=== PATIENT | male | born 1980 | race Caucasian/White ===

== ENCOUNTER → 2024-02-19 14:01 | Outpatient (REF) | payer BC, SELFPAY | LOC: UCDH 14:01 | PROVIDERS: ATTENDING PHYSICIAN Emergency Medicine; FAMILY PHYSICIAN Family Medicine; REFERRING PHYSICIAN Internal Medicine Critical Care Medicine | DX: J18.9 Pneumonia, unspecified organism (principal) | CPT/HCPCS: 71046 ==

== ENCOUNTER → 2024-04-19 13:45 | Outpatient (REF) | payer BC, SELFPAY | LOC: RAD 13:45 | PROVIDERS: ATTENDING PHYSICIAN Nurse Practitioner Adult Health | DX: Z87.01 Personal history of pneumonia (recurrent) (principal) | CPT/HCPCS: 71046 ==

== ENCOUNTER 2024-05-08 19:07 | Inpatient (IN) | payer BC, SELFPAY ==
[2024-05-08 14:25] VITALS: BP 157/91
--- NOTE | 2024-05-08 15:27 | ED.GENMED ---
History of Present Illness
General
Chief Complaint: Breathing Problem
Source: patient and family
Exam Limitations: none
Time Seen by Provider: 05/08/24 14:54
Nursing documentation reviewed up to this point in time: agreed with
History of Present Illness
History of Present Illness:
PT IS A 43 Y/O M
h/o laryngomalacia s/p partial epiglottal resection
remote tonsillectomy
h/o aSpiration pna and acute resp failure requiring intubtion x 2
here from for fever and shaking chills this morning 3 am
pt had + flu and covid testing there and was sent here for pulse ox89%
he doesn't usuall wear o2
pt has a very abnormal voice at baseline which is muffled/gurgly but his mom feels like it is worse
he is able to swallow and denies significant pain in his throat/neck
he does feel a little SOB
deneis leg swelling
h/o possible PE last gaye but then repeated imaging showed no PE so he was only anticoagulated for short time
Past History
Past History
ED Past Medical History: Psychiatric (depression), Other (PE, pneumonia, intubation, pleural effusion, largyngomalacia) and Other (Laryngomalacia, PE, factor V Leiden deficiency, aspiration pneumonia, rectal fistula repair, T tonsillectomy surgery,)
ED Past Surgical History: Tonsilectomy
Social History
Tobacco: Non-smoker
Personal: Single
Living: with family
Employment: Employed
Family History
Family History: Diabetes and Hypertension
Review of Systems
Review of Systems
Allergies reviewed?: Yes
All Other Systems: Not applicable
Phy Exam
Physical Exam
Physical Exam:
GENERAL: Alert , in no apparent distress
EYE: pupils equal and reactive
NECK: Supple
ENT: b/l TM s clear, pharynx severely erythematous; uvula midline and small; no tonsils;
muffled voice and gurgling
able to swallow
CARDIAC: tachy, no edema
LUNGS: Clear breath sounds bilaterally, no acute respiratory distress, no wheezes/rales/rhonchi, occ cough
ABDOMEN: Soft, without focal tenderness, no r/g, no cvat, normal bowel sounds
NEUROLOGICAL: Alert and oriented, no focal neuro deficits
SKIN: Warm and dry, skin intact.
MUSCULOSKELETAL: No edema, well perfused.
PSYCH: Normal and appropriate interaction.
Sepsis
Sepsis Screening
Sepsis Assessment: Sepsis (unlikely, covid +)
Sepsis Screen
Sepsis Screen: Sepsis
Date: 05/08/24
Time: 17:38
Course
Orders/Labs/Results
Orders:
Orders
05/08/24 15:06
CR Chest - 2 Views Urgent
Comment:
Reason For Exam: fever, cough, h/o pna
05/08/24 15:07
Acetaminophen [Tylenol] 1,000 mg PO NOW STA
Dexamethasone Sod Phosphate [Decadron] 10 mg IV NOW STA
05/08/24 15:31
COVID-19 Antigen Urgent
Source: Nasal Swab
Complete Blood Count/With Diff Urgent
Comprehensive Metabolic Panel Urgent
Lactic Acid Q4H
Comment: CANCEL 2nd LACTIC ACID IF 1st LACTIC ACID IS LESS THAN 2
Blood Culture Urgent
LI Source: Blood/Venous
Specimen Description:
Influenza A+B Rapid Molecular Urgent
LI Source: Nasal Swab
Specimen Description:
05/08/24 16:59
Ipratropium/Albuterol Sulfate [Duoneb] 3 ml INH R NOW ONE
Abnormal Lab Results
05/08/24
15:31
WBC 4.5 L 10^3/uL
(4.8-10.8)
MCHC 32.1 L g/dL
(33.0-37.0)
Absolute Lymphs (auto) 0.5 L 10^3/uL
(1.2-3.4)
Absolute Monos (auto) 0.7 H 10^3/uL
(0.1-0.6)
Lymphocytes % 11.1 L %
(20.5-51.1)
Monocytes % 14.7 H %
(1.7-9.3)
Chloride 96 L mmol/L
(98-107)
Glucose 110 H mg/dl
(70-99)
Lactic Acid 0.6 L mmol/L
(0.7-2.0)
SARS-CoV-2 Antigen Positive A
(Negative)
05/08/24 15:31
05/08/24 15:31
Vital Signs
Initial and Last Documented VS:
Initial Vital Signs
Temp Pulse Resp BP Pulse Ox
38.3 C H 112 22 157/91 95
05/08/24 14:25 05/08/24 14:25 05/08/24 14:25 05/08/24 14:25 05/08/24 14:25
Last Documented Vital Signs
Temp Pulse Resp BP Pulse Ox
38.3 C H 102 27 157/91 88
05/08/24 14:25 05/08/24 16:30 05/08/24 16:30 05/08/24 14:25 05/08/24 16:56
MDM/Problems Addressed
Differential Diagnosis Includes:
pneumonia, covid, flu, hypoxia
MDM/Problems Addressed:
cathy craig 43 y/o M
laryngomalacia, s/p partial epigottis resection in the past, tonsillectomy; h/o intubations x 2 for pna
here with fever, rigors 3 am and mild sob; went to and sent for pulse ox 89% RA
pt is febrile, normotensive, was satting 93% on RA most of visit
diminished lungs but no wheezing;
pt is toelrating secretions but has a muffled/wet sounding voice at baseline, mom feels it is worse
covid POS here flu NEG
steroids given
wbc 4.6, lactate 0.6,
sat went down to 88% sleeping; up when awake pulse ox 92%
cxr indep reviewed
no obvious pna
*Critical Care Note
Total Time (30-74mins, 75-104mins- exclusive of procedures): Not Applicable
ED Attending Note
-
Portions of this chart may have been created with voice recognition software.� Occasional wrong word or��sound alike� substitutions may have occurred due to the inherent limitations of voice recognition software.
Discharge Plan
Departure
Patient Disposition: Admit
Date of Disposition: 05/08/24
Time of Disposition: 17:03
Admit to: IMU
Presentation/result/management discussed w/ accepting MD/DO: Hospitalist
Condition: Fair
Covid-19: Confirmed COVID-19
Discharge Problem:
COVID-19, Hypoxia, Laryngomalacia
Prescriptions:
No Action
ibuprofen [Advil] 200 mg Tablet
400 mg PO Q8HPRN PRN (Reason: cold symptoms)
NyQuil D 6.98-52-19-500 mg/15 mL Liquid
30 ml PO HSPRN PRN (Reason: cold symptoms)
Referrals:
Anthony Randall DO [Family Provider] -
Interventions
Interventions:
*Risk Screen - Suicide Last Done: 05/08/24 14:25
*General Assessment Last Done: 05/08/24 14:25
*Neglect/Abuse Screening Last Done: 05/08/24 14:25
ED- Fall Risk Assessment Last Done: 05/08/24 15:50
*ED COVID-19 Vaccine History Last Done: 05/08/24 14:25
ED- Cardiac Assessment Last Done: 05/08/24 15:50
ED- Pulmonary Assessment Last Done: 05/08/24 15:50
Discharge Date and Time
Print Language: SINHALA
[2024-05-08] MEDS: DECADRON 10 MG IV (15:34)
[2024-05-08] MEDS: TYLENOL 1000 MG PO (15:34)
[2024-05-08 15:57] LABS: % Basophils 0.4 % (0-2); % Eosinophils 0.2 % (0-6); % Immature Granulocytes 0.2 % (0-0.5); % Lymphocytes 11.1 % (20.5-51.1); % Monocytes 14.7 % (1.7-9.3); % Neutrophils 73.4 % (42.2-75.2); Absolute Lymphocytes 0.5 10^3/uL (1.2-3.4); Absolute Monocytes 0.7 10^3/uL (0.1-0.6); Absolute Neutrophils 3.3 10^3/uL (1.4-6.5); Hematocrit 45.5 % (39.0-52.0); Hemoglobin 14.6 g/dL (13.0-18.0); Mean Corp Hgb Conc. 32.1 g/dL (33.0-37.0); Mean Corpuscular Hgb 27.4 pg (27.0-31.0); Mean Corpuscular Volume 85.5 fL (80.0-94.0); Mean Platelet Volume 9.8 fL (7.4-10.4); Nucleated Red Blood Cells % 0 % (-); Platelet Count 171 10^3/uL (130-400); Red Blood Cell Count 5.32 10^6/uL (4.70-6.10); Red Cell Dist. Width 14.4 % (11.5-14.5); White Blood Cell Count 4.5 10^3/uL (4.8-10.8)
[2024-05-08 16:08] LABS: Lactic Acid 0.6 mmol/L (0.7-2.0)
[2024-05-08 16:20] LABS: COVID-19 Antigen Positive (Negative)
[2024-05-08 16:21] LABS: ALT (SGPT) 33 U/L (0-50); AST (SGOT) 34 U/L (17-59); Albumin 4.4 g/dl (3.5-5.0); Alkaline Phosphatase 76 U/L (38-126); Blood Urea Nitrogen 18 mg/dl (9-20); Calcium 8.8 mg/dl (8.4-10.2); Carbon Dioxide 30 mmol/L (22-30); Chloride 96 mmol/L (98-107); Glucose 110 mg/dl (70-99); Sodium 136 mmol/L (135-145); Total Bilirubin 0.5 mg/dl (0.2-1.3); Total Protein 7.8 g/dl (6.3-8.2); eGFR > 60.00
[2024-05-08 16:26] LABS: Potassium 4.3 mmol/L (3.5-5.1)
[2024-05-08 17:08] VITALS: BMI 41.6
[2024-05-08 17:20] VITALS: BP 133/76
--- NOTE | 2024-05-08 17:36 | HPS.HSE ---
Family Physician
-
Family Physician: Anthony Randall
Chief Complaint
-
Shortness of breath, fever
History of Present Illness
43 y/o male with past medical history of laryngomalacia status post partial epiglottis resection in the past, tonsillectomy, history of intubations x 2 for pneumonia, aspiration pneumonia (requiring intubation), recurrent pneumonia, questionable
history of PE (was in ER notes, but needs to be verified), questionable history of factor V Leiden deficiency (was in ER notes, but needs to be verified), neutropenia (resolved; had it as a child), adrenal gland abnormality on CT imaging and sleep
apnea, presented with fever, cough, chills, body aches, sore throat and headache since yesterday. His mom was present at the time of patient encounter and contributed to the history. They note that patient had has more shortness of breath over the
past 24 hours, patient got up at 3 am this morning and went to urgent care, where he was told he was positive for COVID and Flu (however Flu testing here was negative). Patient denied chest pain, abdominal pain, nausea or vomiting.
Medical History
Past Medical History
Past Medical History: Reports Other (As per HPI above)
Past Surgical History: Reports Tonsilectomy and Other (Partial epigottis resection )
Social History
Tobacco: Non-smoker
Alcohol: None
Drug: None
Family History
Family History: Not pertinent
Allergies / Home Medications
Allergies reflects when Allergies were last updated in [facility].
Home Medications with original date entered in [facility]
Allergy/Medication List:
Allergies
Allergy/AdvReac Type Severity Reaction Status Date / Time
cat dander Allergy Unknown Verified 05/08/24 14:27
mold Allergy Unknown Verified 05/08/24 14:27
Home Medications
htbahddvv-NGS-KN-acetaminophen 6.25 mg-30 au-37jd-273jm/15mL oral liqd 30 ml PO HSPRN PRN cold symptoms 05/08/24
ibuprofen 200 mg tablet (Advil) 400 mg PO Q8HPRN PRN cold symptoms 05/08/24
Review of Systems
-
A 12 point ROS was completed and negative except as noted: Yes
Physical Exam
Vital Signs
Vital Signs
Temp Pulse Resp BP Pulse Ox
100.9 F H 102 27 157/91 88
05/08/24 14:25 05/08/24 16:30 05/08/24 16:30 05/08/24 14:25 05/08/24 16:56
Physical Exam
General: No Apparent Distress and Conversant
HEENT: NormoCephalic and Moist mucous membranes
Respiratory: Decreased Breath Sounds (on the right lower side)
Cardiac: S1/S2 and Tachycardia
GI: Soft, Non Tender and Normal Bowel Sounds
Musculoskeletal: No Cyanosis and No Edema
Skin: Warm and Dry
Neuro: Awake, Alert and AO x 3
Psych: Calm and Intact Judgment/Insight
Laboratory Results
-
05/08/24 15:31
05/08/24 15:31
Laboratory Results
Lactic Acid Cancelled 05/08/24 19:15
Total Bilirubin 0.5 mg/dl (0.2-1.3) 05/08/24 15:31
AST 34 U/L (17-59) 05/08/24 15:31
ALT 33 U/L (0-50) 05/08/24 15:31
Alkaline Phosphatase 76 U/L (38-126) 05/08/24 15:31
Impression/Plan
-
Assessment/Plan
Possible Acute Hypoxic Respiratory Insufficiency
RLL Pneumonia
COVID Positive
History of laryngomalacia status post partial epiglottis resection in the past, tonsillectomy
History of intubations x 2 for pneumonia
Aspiration pneumonia (requiring intubation)
Recurrent Pneumonia and Recent Use of Antibiotics
-Patient says his oxygen saturations might be lower than his baseline (normally 92% to 93% on room air)
-Given history above, broad spectrum antibiotics consisting of MRSA and Pseudomonas coverage with Vancomycin, Cefepime and Flagyl
-Given patient's history of pneumonia needing intubation, and patient's anatomy, patient is at elevated risk of decompensation
-Monitor closely in IMU
-Pulmonary toilet consisting of HOB elevation as ordered, Saline for inhalation, Mucinex
-Continue Dexamethasone IV steroids 6 mg daily (received 10 mg in the ER)
-Given possible hypoxia along with tachycardia, check CT Chest PE study and lower extremity ultrasound for DVT
Questionable history of PE (was in ER notes, but needs to be verified)
Questionable history of factor V Leiden deficiency (was in ER notes, but needs to be verified)
SOB, Possible Hypoxia, and Tachycardia
Fullness in the lower extremities reported by patient this admission
-Given possible hypoxia along with tachycardia, check CT Chest PE study
-Check lower extremity ultrasound for DVT
Neutropenia (resolved; had it as a child)
History of adrenal gland abnormality on CT imaging
Sleep apnea
DVT Prophylaxis: Lovenox. If lower extremity ultrasound is negative, then can order SCDs.
Code Status: Full Code
[2024-05-08] MEDS: DUONEB 3 ML INH (17:44)
[2024-05-08 18:00] VITALS: BP 143/84
[2024-05-08] MEDS: MAXIPIME 1000 MG IV (19:27)
[2024-05-08] MEDS: MUCINEX 600 MG PO (19:27)
[2024-05-08] MEDS: STERILE WATER FOR INJECTION 10 ML IV (19:28)
[2024-05-08] MEDS: LOVENOX 40 MG SC (19:28)
--- NOTE | 2024-05-08 19:29 | PHA.VAN.IN ---
Assessment
- Assessment
Renal Function: Appears similar to baseline
Maximum Temperature: 100.9 F
Concomitant Antimicrobials: CEFEPIME
- Previous Dosing Experience
Date of Regimen: 06/2014
AUC Dosing Plan
- Dosing Variables
Dosing Weight (kg): 88 (ADJUSTED BODY WEIGHT)
Dosing CrCl (ml/min): 125
Vd coefficient (L/kg): 0.7
- Empiric Dosing
Initial / Loading Dose: VANCO 2000MG X1
Maintenance Regimen: VANCO 1000MG Q8H
Estimated AUC (mcg*h/mL): 475
Estimated Peak (mcg*h/mL): 28
Estimated Trough (mcg/ml): 13.2
Estimated Half Life (H): 6.4
- Monitoring
No levels ordered at this time: CONSIDER LEVEL PRIOR TO 4TH MAINTENANCE DOSE
MRSA Screen: Ordered per protocol
Pharmacokinetics Vancomycin I
- -
Patient Age: 43
Patient Sex: Male
Vancomycin Day #: 1
Indication: PULM
Requesting Provider: DR. KEY
Height / Weight:
Height 5 ft 7 in
Actual Weight 120.4 kg
IBW in k
Adjusted BW in k
Pertinent Past Medical History: LARYNGOMALACIA, CHRONIC ASPIRATION, OBESITY
- Vital Signs / Lab Results
Temp Pulse Resp BP Pulse Ox
99.1 F 98 30 143/84 91
05/08/24 17:48 05/08/24 18:00 05/08/24 18:00 05/08/24 18:00 05/08/24 18:00
Lab Results - Hematology
05/08/24
15:31
WBC 4.5 L
Lab Results - Chemistry
05/08/24
15:31
BUN 18
Creatinine 0.8
Albumin 4.4
05/08/24 05/08/24
15:31 19:15
Lactic Acid 0.6 L Cancelled
Microbiology Results
05/08/24 15:31 Influenza Types A & B ([facility]) - Final
Nasal Swab Negative for Influenza A & B, NAAT
Negative results must be combined with clinical observations
and patient history.
Nucleic Acid Amplification test (NAAT)performed on the
[employer] platform.
[2024-05-08 19:43] VITALS: BP 116/69
[2024-05-08] MEDS: VANCOCIN 540 MG IV (19:44)
[2024-05-08 20:00] VITALS: BP 106/65
[2024-05-08 22:06] VITALS: BP 137/89
--- NOTE | 2024-05-08 22:18 | PTCARENOTE ---
Received pt to ICU 3357 (IMU status) via stretcher. Stood and pivoted independently to bed. Bathed with CHG. Pt. AAOx3, without complaints, reports feeling better. Muffled/garbled speech quality (pt. reports it is mildly worse than his baseline). On
2L NC, spo2 93%. Lungs diminished. No cough per pt. Sputum collection cup provided in case he can expectorate. NSR on tele, HR 80-90s. BP 137/89. Afebrile. Skin c/d/i. Urinal at bedside. R AC #18 and L W #20 patent and capped. Call guardado in reach, pt
instructed to call before getting OOB.
--- NOTE | 2024-05-08 23:23 | PTCARENOTE ---
Pt. intermittently desatting to low 80s while asleep. Shallower respirations witnessed during desaturation. When awoken, sats up to 90s immediately. Increased to 4L NC. HOB raised. Report given to oncoming RN.
[2024-05-08] MEDS: FLUSH (NSS) 2 FLUSH IV (23:41)
[2024-05-08] MEDS: FLAGYL 500 MG 100 IV (23:41)
[2024-05-09] VITALS (12 sets, daily range): BP systolic 110–128; BP diastolic 69–87; PULSE 72–78; BMI 39.6
--- NOTE | 2024-05-09 01:43 | PTCARENOTE ---
Patient O2 sat on 4lpm continues to drop intermittently to mid 80's while sleeping. He is snoring and mouth breathing. Patient states he does use CPAP at HS. Ordered obtained. Resp in to place on patient.
[2024-05-09] MEDS: MAXIPIME 1000 MG IV ×4 (02:20→20:09)
[2024-05-09] MEDS: FLUSH (NSS) 2 FLUSH IV (02:25)
[2024-05-09] MEDS: STERILE WATER FOR INJECTION 10 ML IV ×4 (02:25→20:10)
[2024-05-09] MEDS: VANCOCIN 200 IV (05:41)
--- NOTE | 2024-05-09 06:41 | W.PN.HOSP.TC ---
Today's Communication/Plan
-
cont covid isolation protocols
stable for downgrade to tele
wean O2 as tolerated
abx narrowed to Cefipime
Video swallow exam in AM.
Assessment / Plan
Assessment / Plan
Physical Exam
General: No Apparent Distress, conversant, obese
HEENT: NormoCephalic and Moist mucous membranes, gurgling
Respiratory: Decreased Breath Sounds some rhonchi
Cardiac: S1/S2 NSR no rubs gallops murmurs
GI: Soft, Non Tender and Normal Bowel Sounds
Musculoskeletal: No Cyanosis and No Edema
Skin: Warm and Dry
Neuro: AO x 3
Psych: Calm
43M with past medical history of laryngomalacia status post partial epiglottis resection in the past, tonsillectomy, history of intubations x 2 for pneumonia, questionable history of PE factor V Leiden deficiency, neutropenia (resolved during
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 Evaluated in urgent care, where he was told he was positive for COVID and Flu (however Flu
testing here was negative). Patient denied chest pain, abdominal pain, nausea or vomiting.
Acute Hypoxic Respiratory Insufficiency
RLL Pneumonia
COVID Positive
History of laryngomalacia status post partial epiglottis resection in the past, tonsillectomy
History of intubations x 2 for pneumonia
Aspiration pneumonia (requiring intubation)
Recurrent Pneumonia and Recent Use of Antibiotics
-IMU admit
-requiring 2L
-MRSA screen neg, empiric Vanc cefipime flagyll narrowed to cefipime only
-Pulmonary toilet, HOB elevation, Saline for inhalation, Mucinex
-Continue Dexamethasone IV steroids 6 mg daily (received 10 mg in the ER)
-CT Chest limited study noted no PE
-lower extremity ultrasound neg for DVT
-Pulm eval appreciated Respiratory decompensation likely related to bacterial oleroueyk-poqutuclp-lmzpwzov or aspiration and less likely COVID as he is previously vaccinated and has had previous infection 4 times offering significant immunity
-speech eval appreciated oropharyngeal dysphagia, likely chronic in nature, cont NPO for now, Video swallow eval in AM
childhood Neutropenia resolved
History of adrenal gland abnormality on CT imaging
Sleep apnea
DVT Prophylaxis: Lovenox
Code Status: Full Code
Stable for downgrade to Tele
I spent a total of 50 minutes with the patient or on the floor. More than 50% of this time involved counseling and coordination of care.
Anticipated Discharge: > 48 hours
Subjective/Interval History
-
Date of Service: May 09, 2024
Seen and examined at bedside in no acute distress resting comfortably in bed. Reports improvement in symptoms since admission. On nasal cannula supplementation, non labored respiration.
Objective Data
-
Labs:
Laboratory Results
05/09/24 05/09/24
05:40 06:21
WBC Cancelled Pending
Hgb Cancelled Pending
Hct Cancelled Pending
Plt Count Cancelled Pending
Sodium Cancelled Pending
Potassium Cancelled Pending
Chloride Cancelled Pending
Carbon Dioxide Cancelled Pending
BUN Cancelled Pending
Creatinine Cancelled Pending
Glucose Cancelled Pending
Calcium Cancelled Pending
Total Bilirubin Cancelled Pending
AST Cancelled Pending
ALT Cancelled Pending
Alkaline Phosphatase Cancelled Pending
Vital Signs:
Vital Signs
Temp Pulse Resp BP Pulse Ox
97.5 F 74 22 119/77 94
05/08/24 22:07 05/09/24 06:00 05/09/24 06:00 05/09/24 06:00 05/09/24 06:00
I&O
05/07/24 05/08/24 05/09/24
06:59 06:59 06:59
Intake Total 100 / 100
Output Total 450 / 450
Balance -350 / -350
--- NOTE | 2024-05-09 07:38 | CON.INTV ---
Consultation
Consultation Request
Date/Time Consultation Requested: 05/09/2024-7 AM
Date/Time Consultation Performed: 05/09/2024-7 AM
Requesting Provider: Hospitalist
Performing Provider: Dr. Gibson
Reason for Consultation: COVID and pneumonia
Medical History
-
Chief Complaint: Shortness of breath
History of Present Illness:
43-year-old obese non-smoking male with a history of laryngomalacia, recurrent pneumonias including hospitalization and ventilator dependence and questionable pulmonary embolism, factor V Leiden deficiency, and obstructive sleep apnea presented with
feels sharp, cough, chills, body aches, sore throat and headache previously vaccinated, no recent COVID booster and states he has had COVID 5 times in the past now with pneumonia and COVID positive-pulmonary consulted for pneumonia 05/09/2024.
Patient states that he feels improved. He has mild chest congestion. He has a nonproductive cough. He has mild shortness of breath. Does not complain of any current chest pain, chest tightness, wheezing, pleurisy, abdominal pain, nausea,
increased leg swelling or weakness.
Past Medical History
Past Medical History: None (Laryngomalacia. Partial epiglottis resection. Tonsillectomy. History intubation twice for pneumonia. Aspiration pneumonia requiring intubation. Recurrent pneumonia. Questionable history of PE. Possible factor V
Leiden deficiency. Neutropenia. ONEL. Obesity.)
Social History
Tobacco: Non-smoker
Alcohol: None
Drug: None
Personal: Single
Occupational Exposures: No known asbestos exposure
Environmental Exposures: No known tuberculosis exposure
Family History
Family History: Reviewed & Not Pertinent and Other
Allergies / Home Medications
Allergies
Allergy/AdvReac Type Severity Reaction Status Date / Time
cat dander Allergy Unknown Verified 05/08/24 14:27
mold Allergy Unknown Verified 05/08/24 14:27
Home Medications
�Medication �Instructions �Recorded �Confirmed �Last Taken �Type
crfaragmo-LYJ-HV-acetaminophen 30 ml PO HSPRN PRN cold symptoms 12/22/24 12/22/24 12/21/24 History
6.25 mg-30 ya-57xz-140fh/15mL oral
liqd
ibuprofen 200 mg tablet (Advil) 400 mg PO Q8HPRN PRN cold symptoms 05/08/24 05/08/24 05/07/24 History
Review of Systems
-
Unable to Obtain full review of systems at this time due to: Other (Per HPI)
Vitals / Labs / Diagnostic Testing
Vital Signs
Temp Pulse Resp BP Pulse Ox
97.5 F 74 22 119/77 94
05/08/24 22:07 05/09/24 06:00 05/09/24 06:00 05/09/24 06:00 05/09/24 06:00
Microbiology
05/08/24 15:31 Nasal Swab Influenza Types A & B ([facility]) - Final
Negative for Influenza A & B, NAAT
Negative results must be combined with clinical observations
and patient history.
Nucleic Acid Amplification test (NAAT)performed on the
[employer] platform.
Diagnostic Testing:
Physical Exam
-
Exam:
Well-nourished and well-developed in no apparent distress
HEENT-atraumatic, normocephalic
Neck-supple, no JVD, no bruit
Heart-regular rate and rhythm-no murmurs, rubs or gallops
Chest with diminished breath sounds, basilar crackles, no wheezes,, few rhonchi
Back without tenderness
Abdomen-soft, nontender, nondistended, no hepatosplenomegaly
Extremities-no cyanosis, clubbing, edema and good peripheral pulses
Integument-intact, no rashes, lesions or ecchymosis
Neurology-alert and oriented, nonfocal motor and sensory exam
Assessment
-
43-year-old obese non-smoking male with a history of laryngomalacia, recurrent pneumonias including hospitalization and ventilator dependence and questionable pulmonary embolism, factor V Leiden deficiency, and obstructive sleep apnea presented with
feels sharp, cough, chills, body aches, sore throat and headache previously vaccinated, no recent COVID booster and states he has had COVID 5 times in the past now with pneumonia and COVID positive-pulmonary consulted for pneumonia 05/09/2024.
Aitimvghu-phjpfhogz-lbmtkovo with aspiration risk
Recurrent pneumonias
Aspiration risk
COVID positive
Leukopenia
History laryngomalacia
Conditions present prior to admission:
Laryngomalacia.
Partial epiglottis resection.
Tonsillectomy.
History intubation twice for pneumonia.
Aspiration pneumonia requiring intubation.
Recurrent pneumonia.
Questionable history of PE.
Possible factor V Leiden deficiency.
Neutropenia.
ONEL.
Obesity.
Plan
Respiratory decompensation likely related to bacterial ifpkibiup-mwrecdgjx-phsrpkys or aspiration and less likely COVID as he is previously vaccinated and has had previous infection 4 times offering significant immunity
Supplemental oxygen as needed
Aspiration precautions
Speech therapy evaluation-last saw 02/25/2021-dysphagia 3 with thin liquids-had video swallow at that time
Video swallow if needed
Nebulizers as needed-currently not bronchospastic
Decadron per protocol
CPAP as needed
Isolation per protocol
Prone positioning if needed
Check cultures
Sputum culture if able to produce
Empiric antibiotics-vancomycin, Flagyl and cefepime initiated-discontinue vancomycin if MRSA screen negative
Check MRSA screen
Follow leukopenia
DVT prophylaxis-on Lovenox
Nutrition
Early mobilization
Patient stable for transfer to telemetry-pulmonary will continue to follow
Outpatient sleep disordered breathing/pulmonary xyjcng-al-qfct seen by Yomaira Herrera 04/26/2024 and has appointment with PFT 06/06/2024
Diagnostic data:
Chest x-ray 05/08/2024-right basilar pneumonia and small pleural effusion
CT chest 05/08/2024-some motion artifact but no pulmonary embolism was identified bilaterally, mild patchy parenchymal opacifications at the lung bases greater at the right lung base
Lower extremity ultrasound 05/08/2024-no evidence for right or left lower extremity DVT
Echocardiogram 07/07/2014-EF 55-60%, PA systolic 35-40
PSG 07/08/2021-sleep efficiency 94.3%, early REM onset 62 minutes, AHI-25.6, desaturation arsalan 77%, 5% of study time spent less than 90% saturation
Data Reviewed
-
EKG: Report reviewed by me
Radiology: Image personally visualized and interpreted and Report reviewed by me
CT Scan: Image personally visualized and interpreted and Report reviewed by me
Ultrasound: Report reviewed by me
Medical Tests (Nuc Med, Echo etc): Report reviewed by me
Labs: Labs reviewed by me
Old Records: Reviewed
Critical Care Time (in minutes): 55
[2024-05-09] MEDS: ProAIR HFA INHALER 2 PUFF INH ×4 (07:54→20:00)
[2024-05-09 08:18] LABS: % Immature Granulocytes 0.4 % (0-0.5); % Lymphocytes 15.5 % (20.5-51.1); % Neutrophils 75.1 % (42.2-75.2); Absolute Lymphocytes 0.7 10^3/uL (1.2-3.4); Absolute Monocytes 0.4 10^3/uL (0.1-0.6); Absolute Neutrophils 3.3 10^3/uL (1.4-6.5); Hematocrit 45.5 % (39.0-52.0); Hemoglobin 14.4 g/dL (13.0-18.0); Mean Corp Hgb Conc. 31.6 g/dL (33.0-37.0); Mean Corpuscular Hgb 27.3 pg (27.0-31.0); Mean Corpuscular Volume 86.3 fL (80.0-94.0); Nucleated Red Blood Cells % 0 % (-); Platelet Count 192 10^3/uL (130-400); Red Blood Cell Count 5.27 10^6/uL (4.70-6.10); Red Cell Dist. Width 14.6 % (11.5-14.5); White Blood Cell Count 4.5 10^3/uL (4.8-10.8)
[2024-05-09 08:36] LABS: ALT (SGPT) 30 U/L (0-50); AST (SGOT) 31 U/L (17-59); Albumin 4.3 g/dl (3.5-5.0); Alkaline Phosphatase 65 U/L (38-126); Blood Urea Nitrogen 17 mg/dl (9-20); Calcium 8.5 mg/dl (8.4-10.2); Carbon Dioxide 31 mmol/L (22-30); Chloride 99 mmol/L (98-107); Estimated Creatinine Clearance > 125 ml/min; Glucose 127 mg/dl (70-99); Magnesium 2.4 mg/dl (1.6-2.3); Potassium 4.2 mmol/L (3.5-5.1); Sodium 139 mmol/L (135-145); Total Bilirubin 0.3 mg/dl (0.2-1.3); Total Protein 7.5 g/dl (6.3-8.2); eGFR > 60.00
[2024-05-09] MEDS: FLAGYL 500 MG 100 IV (09:45)
[2024-05-09] MEDS: MUCINEX PO (09:46)
[2024-05-09] MEDS: DECADRON 6 MG IV (09:46)
--- NOTE | 2024-05-09 11:19 | PTOTSP ---
Speech Therapy Evaluation:
Pt exhibits clinical signs of oropharyngeal dysphagia, likely chronic in nature related to history of dysphagia, aspiration PNA, recurrent PNAs including hospitalization and ventilator dependence, and laryngomalacia s/p partial epiglottis resection.
Conservative PO trials of ice chips administered with slow but functional oral stage and no overt s/sx of aspiration, however unable to r/o aspiration d/t limitations at bedside, wet/gurgly vocal quality at baseline, and absent reflexive cough noted
on previous VSE in 2020. In brief, VSE in 2020 revealed trace laryngeal penetration and/or aspiration across all consistencies with no reflexive cough. See full report for further details. Pt currently with PNA (Opacity in R lung base noted on CT).
Pt at high risk of aspiration and associated decompression given hx of requirement of intubations x2 for PNA.
Recommend:
1. NPO
2. Medications non-oral
3. Oral care 3x daily
4. VFSS to further assess oropharyngeal swallow function and determine safest least restrictive diet
5. [facility] to follow
[2024-05-09] MEDS: D5/0.9% SODIUM CHLORIDE 1000 IV ×2 (12:40→23:02)
--- NOTE | 2024-05-09 15:00 | CM ---
CM following re: discharge planning.
Reviewed pt's chart, met with pt and met with pt's mother Nivia.
Pt is a 43 year old male, admitted with primary dx of Hypoxia, COVID19.
Per mother, pt lives with a girlfriend in a 2SH, has no children. Per mother, pt is independent in all areas [employer]IC[employer], drives, works. per mother, pt will go to her house and she will transport him home.
PCP: Anthony Pa
Pharmacy: [facility].
D/C plan: home with anticipated no needs. Mother to transport at discharge.
CM will follow with discharge plan updates as hospitalization progresses
--- NOTE | 2024-05-09 19:25 | PTCARENOTE ---
Patient remains on 2L NC; plan for [facility] swallow study tomorrow, npo and on IVF, oob to chair and bathroom, other vitals within normal limits
--- NOTE | 2024-05-09 20:00 | PTCARENOTE ---
Patient received sitting up in the chair, awake and alert. Saturating 96% on 2L/nc humidified oxygen. Denies pain. However, patient is dyspeic with speech, MIR. BUL clear anteriorly. Bilateral bases with faint crackles and right base diminished. BLE
with 1+ edema, pedal pulses palpable. S1S2 regular, distant with soft murmur. Po medication taken with a small sip of water, patient completely upright--no s/sx of aspiration noted. See assessment charted.
[2024-05-09] MEDS: MUCINEX 600 MG PO (20:10)
[2024-05-09] MEDS: LOVENOX 40 MG SC (20:10)
--- NOTE | 2024-05-09 22:35 | PTCARENOTE ---
Patient placed on CPAP with 2L oxygen bleed in per RT. Bilateral LEs SCDs placed per order.
[2024-05-10] VITALS (9 sets, daily range): BP systolic 104–148; BP diastolic 71–83; PULSE 69–82; O2SAT 93–96; BMI 41.0
[2024-05-10] MEDS: STERILE WATER FOR INJECTION 10 ML IV ×4 (01:50→19:29)
[2024-05-10] MEDS: MAXIPIME 1000 MG IV ×4 (01:51→19:28)
[2024-05-10 06:54] LABS: % Basophils 0.2 % (0-2); % Lymphocytes 20.2 % (20.5-51.1); % Monocytes 8.5 % (1.7-9.3); % Neutrophils 71.1 % (42.2-75.2); Absolute Lymphocytes 1.1 10^3/uL (1.2-3.4); Absolute Monocytes 0.4 10^3/uL (0.1-0.6); Absolute Neutrophils 3.7 10^3/uL (1.4-6.5); Hematocrit 43.5 % (39.0-52.0); Mean Corp Hgb Conc. 32.2 g/dL (33.0-37.0); Mean Corpuscular Hgb 27.7 pg (27.0-31.0); Mean Corpuscular Volume 86.1 fL (80.0-94.0); Mean Platelet Volume 10.1 fL (7.4-10.4); Nucleated Red Blood Cells % 0 % (-); Platelet Count 179 10^3/uL (130-400); Red Blood Cell Count 5.05 10^6/uL (4.70-6.10); Red Cell Dist. Width 14.4 % (11.5-14.5); White Blood Cell Count 5.2 10^3/uL (4.8-10.8)
[2024-05-10 07:22] LABS: ALT (SGPT) 30 U/L (0-50); AST (SGOT) 28 U/L (17-59); Albumin 3.7 g/dl (3.5-5.0); Alkaline Phosphatase 62 U/L (38-126); Blood Urea Nitrogen 16 mg/dl (9-20); Calcium 8.3 mg/dl (8.4-10.2); Carbon Dioxide 34 mmol/L (22-30); Chloride 102 mmol/L (98-107); Estimated Creatinine Clearance > 125 ml/min; Glucose 116 mg/dl (70-99); Potassium 4.4 mmol/L (3.5-5.1); Sodium 141 mmol/L (135-145); Total Bilirubin 0.3 mg/dl (0.2-1.3); Total Protein 6.8 g/dl (6.3-8.2); eGFR > 60.00
--- NOTE | 2024-05-10 07:28 | PTCARENOTE ---
Report given verbally to RN Disa, Questions answered.
--- NOTE | 2024-05-10 07:42 | W.PN.INTV ---
Today's Communication / Plan
Recommendations
Wean oxygen
Continue antibiotics
Decadron per protocol
Eventually follow-up radiograph
Aspiration precautions
Speech therapy evaluation
Transfer to telemetry-call pulmonary if respiratory issues arise
Assessment
-
43-year-old obese non-smoking male with a history of laryngomalacia, recurrent pneumonias including hospitalization and ventilator dependence and questionable pulmonary embolism, factor V Leiden deficiency, and obstructive sleep apnea presented with
feels sharp, cough, chills, body aches, sore throat and headache previously vaccinated, no recent COVID booster and states he has had COVID 5 times in the past now with pneumonia and COVID positive-pulmonary consulted for pneumonia 05/09/2024.
Besjpmfyh-jpotfutwk-yurhhlxv with aspiration risk
Recurrent pneumonias
Aspiration risk
COVID positive
Leukopenia
History laryngomalacia
Conditions present prior to admission:
Laryngomalacia.
Partial epiglottis resection.
Tonsillectomy.
History intubation twice for pneumonia.
Aspiration pneumonia requiring intubation.
Recurrent pneumonia.
Questionable history of PE.
Possible factor V Leiden deficiency.
Neutropenia.
ONEL.
Obesity.
Plan
Respiratory decompensation likely related to bacterial cyugbyfre-xgqxruqgu-htklnnzz or aspiration and less likely COVID as he is previously vaccinated and has had previous infection 4 times offering significant immunity
Supplemental oxygen as needed-weaned to room air
Aspiration precautions
Speech therapy evaluation-last saw 02/25/2021-dysphagia 3 with thin liquids-had video swallow at that time
Video swallow if needed
Nebulizers as needed-currently not bronchospastic
Decadron per protocol
On CPAP at home-tolerating CPAP 10 cm with 2 L oxygen
Isolation per protocol
Prone positioning if needed-has not needed
Cultures reviewed
Blood cultures negative
MRSA screen negative
Influenza negative
Sputum culture if able to produce
Empiric antibiotics-vancomycin, Flagyl and cefepime initiated-discontinue vancomycin if MRSA screen negative
Monitor leukopenia-improved
Hold off on antivirals including remdesivir
DVT prophylaxis-on Lovenox
Nutrition
Increase activity
Patient stable for transfer to telemetry--now on room air-call pulmonary if respiratory issues arise
Outpatient sleep disordered breathing/pulmonary dplicq-nn-zkgu seen by Yomaira Herrera 04/26/2024 and has appointment with PFT 06/06/2024
Diagnostic data:
Chest x-ray 05/08/2024-right basilar pneumonia and small pleural effusion
CT chest 05/08/2024-some motion artifact but no pulmonary embolism was identified bilaterally, mild patchy parenchymal opacifications at the lung bases greater at the right lung base
Lower extremity ultrasound 05/08/2024-no evidence for right or left lower extremity DVT
Echocardiogram 07/07/2014-EF 55-60%, PA systolic 35-40
PSG 07/08/2021-sleep efficiency 94.3%, early REM onset 62 minutes, AHI-25.6, desaturation arsalan 77%, 5% of study time spent less than 90% saturation
Subjective Dataa
Subjective Data
Date of Service:
Date of Service: May 10, 2024
Chief Complaint: Vice President Compliance Follow Up, Pulmonary Follow Up and Pneumonia Follow Up
Subjective:
No complaints of worsening shortness of breath, minimal cough, no chest pain or abdominal pain
Review of Systems
General: Other
Objective Data
Data Reviewed
Vital Signs / I&O / Oxygen:
Vital Signs
Temp Pulse Resp BP Pulse Ox
97.2 F 54 19 104/71 97
05/10/24 00:00 05/10/24 04:00 05/10/24 04:00 05/10/24 04:00 05/10/24 04:00
Intake and Output
05/09/24 05/10/24 05/11/24
06:59 06:59 06:59
Intake Total 100 / 100 1330 / 1330
Output Total 450 / 450 300 / 300
Balance -350 / -350 1030 / 1030
SaO2 97
Nasal Cannula flow liters per 2
minute
Physical Exam
General: Respiratory Distress (n) and Comfortable
HEENT: Normocephalic, Anicteric and Moist Mucous Membranes
Cardiovascular: Regular Rhythm
Respiratory: Wheeze (n), Crackles (Basilar), Rhonchi (Few expiratory), Non-Labored Respirations, Accessory Resp Muscle Use (n) and Stridor (n)
GI: Soft, Non Distended and Non Tender
Neurology: Awake, Alert and No Motor Deficits
Skin: Warm, Good Color, Cyanosis (n) and Jaundice (n)
Labs/Micro/Reports
Lab Data
05/10/24 06:06
05/10/24 06:06
Microbiology
05/08/24 20:47 Blood/Venous Blood Culture - Preliminary
No Growth in 24 hours- Final report to follow
05/08/24 20:46 Blood/Venous Blood Culture - Preliminary
No Growth in 24 hours- Final report to follow
05/08/24 15:31 Blood/Venous Blood Culture - Preliminary
No Growth in 24 hours- Final report to follow
05/08/24 20:46 Nose Nasal Screen MRSA (PCR) - Final
MRSA not detected - performed by PCR methodology.
05/08/24 15:31 Nasal Swab Influenza Types A & B ([facility]) - Final
Negative for Influenza A & B, NAAT
Negative results must be combined with clinical observations
and patient history.
Nucleic Acid Amplification test (NAAT)performed on the
[employer] platform.
--- NOTE | 2024-05-10 08:27 | W.PN.HOSP.TC ---
Today's Communication/Plan
-
Stable for downgrade to [facility]
Diet resumed, swallow compensation strategies as per speech
cont abx
IV steroid converted to PO
Assessment / Plan
Assessment / Plan
Physical Exam
General: No Apparent Distress, conversant, obese
HEENT: NormoCephalic and Moist mucous membranes
Respiratory: Decreased Breath Sounds some rhonchi, stable respiratory status on room air
Cardiac: S1/S2 NSR no rubs gallops murmurs
GI: Soft, Non Tender and Normal Bowel Sounds
Musculoskeletal: No Cyanosis and No Edema
Skin: Warm and Dry
Neuro: AO x 3
Psych: Calm
43M with past medical history of laryngomalacia status post partial epiglottis resection in the past, tonsillectomy, history of intubations x 2 for pneumonia, questionable history of PE factor V Leiden deficiency, neutropenia (resolved during
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 Evaluated in urgent care, where he was told he was positive for COVID and Flu (however Flu
testing here was negative). Patient denied chest pain, abdominal pain, nausea or vomiting.
Acute Hypoxic Respiratory Insufficiency
RLL Pneumonia
COVID Positive
History of laryngomalacia status post partial epiglottis resection in the past, tonsillectomy
History of intubations x 2 for pneumonia
Aspiration pneumonia (requiring intubation)
Recurrent Pneumonia and Recent Use of Antibiotics
-IMU admit stable for downgrade to [facility]
-requiring 2L since weaned off to room air, home oxygen assessment appreciated no need for supplemental oxygen
-MRSA screen neg, empiric Vanc cefipime flagyll narrowed to cefipime only cont
-Pulmonary toilet, HOB elevation, Saline for inhalation, Mucinex
-Continue Dexamethasone IV steroids 6 mg daily (received 10 mg in the ER)
-CT Chest limited study noted no PE
-lower extremity ultrasound neg for DVT
-Pulm eval appreciated Respiratory decompensation likely related to bacterial eoxejqayy-ukkbqfyip-lqvoghtm or aspiration and less likely COVID as he is previously vaccinated and has had previous infection 4 times offering significant immunity
-speech eval appreciated oropharyngeal dysphagia, likely chronic in nature, VSE appreciated trace aspiration suspected baseline swallow in comparison to VSE 02/25/2021 chronic elevated aspiration risk, patient aware of risk opted to resume oral diet
with swallowing compensation strategies.
Childhood Neutropenia resolved
History of adrenal gland abnormality on CT imaging
Sleep apnea
DVT Prophylaxis: Lovenox
Code Status: Full Code
Stable for downgrade to [facility]
I spent a total of 50 minutes with the patient or on the floor. More than 50% of this time involved counseling and coordination of care.
Anticipated Discharge: 24 - 48 hours
Subjective/Interval History
-
Date of Service: May 10, 2024
No acute distress sitting comfortably in chair. Weaned off oxygen supplementation, stable respiratory status on room air. Reports overall feeling well.
Objective Data
-
Labs:
Laboratory Results
05/10/24
06:06
WBC 5.2
Hgb 14.0
Hct 43.5
Plt Count 179
Sodium 141
Potassium 4.4
Chloride 102
Carbon Dioxide 34 H
BUN 16
Creatinine 0.7
Glucose 116 H
Calcium 8.3 L
Total Bilirubin 0.3
AST 28
ALT 30
Alkaline Phosphatase 62
Vital Signs:
Vital Signs
Temp Pulse Resp BP Pulse Ox
97.2 F 54 19 104/71 97
05/10/24 00:00 05/10/24 04:00 05/10/24 04:00 05/10/24 04:00 05/10/24 04:00
I&O
05/09/24 05/10/24 05/11/24
06:59 06:59 06:59
Intake Total 100 / 100 1330 / 1330
Output Total 450 / 450 300 / 300
Balance -350 / -350 1030 / 1030
[2024-05-10] MEDS: ProAIR HFA INHALER 2 PUFF INH (08:54)
[2024-05-10] MEDS: D5/0.9% SODIUM CHLORIDE 1000 IV (09:31)
[2024-05-10] MEDS: DECADRON 6 MG IV (09:32)
[2024-05-10] MEDS: MUCINEX 600 MG PO ×2 (09:32→19:29)
--- NOTE | 2024-05-10 09:52 | PN.CDI ---
CDI
- -
CDI:
Physician Documentation Request
Admit Date: 05/08/24 19:07
Dear Doctor Rachelle,
Patient admitted with COVID and pneumonia.
Presenting WBC 4.5 , temp 100.9 , heart rate 112 , resp rate 22-31
Please clarify which of the following most accurately describes the status of the patient's infection:
Sepsis
- Systemic manifestations of infection, with 2 or more SIRS criteria which include:
- Fever >100.4 degrees F or hypothermia < 96.8 degrees F
- Leukocytosis - WBC > 12,000 or leukopenia - WBC < 4,000 or > 10% bands
- Tachycardia > 90 beats per minute
- Tachypnea - RR > 20 breaths per minute or PaCO2 , 32mmHg
Source: Merck Manual 2013
Localized Infection Only, Without Systemic Illness
Other
Use of terms such as suspected, likely, concern for, or probable (associated with a specific diagnosis that is being evaluated, monitored, or treated as if it exists) are acceptable and can be coded in the inpatient setting, when documented at the
time of discharge.
Thank you,
Amira Ibarra RN, BSN
CDI Specialist
tiger text
Please use your independent medical judgment in providing your response.
--- NOTE | 2024-05-10 11:33 | PTCARENOTE ---
Pt returned back into room from video swallow.
--- NOTE | 2024-05-10 13:00 | PTCARENOTE ---
Per Dr. Bush - pt ok to resume regular diet, dc IVF, continue IV abx. Pt further downgraded from tele to med surg per protocol. Pt has remained pleasant, independent in room, VSS on room air. Pt updated with plan of care....verbalized understanding
and agreement. Safe environment maintained.
--- NOTE | 2024-05-10 14:06 | PTOTSP ---
Addendum entered and electronically signed by ST Alexandra 05/10/24 14:08:
*3. Single sips.
Original Note:
Video Swallow Study
Summary: Oral stage WFL. Pharyngeal stage moderately impaired and impacted by anatomical changes (see patient care note). Trace aspiration occurred with mildly thick liquids via tsp (in 1 out of 2 trials) and moderately thick liquids via tsp that
cleared with cough (cued x1 with mildly thick, spontaneous x1 with moderately thick).
Suspect swallow is at last known baseline when comparing video swallow study from 02/25/2021. Patient with chronic elevated aspiration risk. Patient opted to resume an oral diet with swallowing compensations understanding risks/complications of
aspiration.
Recommendations:
1. Patient opting to resume regular, thin diet understanding aspiration risks/complications
2. Medications: as best tolerated
3. Strategies: upright to 90 degrees, multiple swallows, cough/re-swallow strategy to clear airway, oral care 3x daily
4. Dysphagia therapy at the acute care level for continued education, instruction in compensations.
--- NOTE | 2024-05-10 14:15 | CM ---
CM following re: discharge planning.
Reviewed pt's chart. Pt on room air, continue supportive care.
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
D/C plan: home with anticipated no needs. Mother to transport at discharge.
CM will follow with discharge plan updates as hospitalization progresses
[2024-05-10] MEDS: LOVENOX 40 MG SC (19:28)
[2024-05-11] MEDS: STERILE WATER FOR INJECTION 10 ML IV ×2 (02:38→08:29)
[2024-05-11] MEDS: MAXIPIME 1000 MG IV ×2 (02:39→08:29)
[2024-05-11 06:46] LABS: % Basophils 0.2 % (0-2); % Immature Granulocytes 0.4 % (0-0.5); % Lymphocytes 21.4 % (20.5-51.1); % Monocytes 7.2 % (1.7-9.3); % Neutrophils 70.8 % (42.2-75.2); Absolute Lymphocytes 1.2 10^3/uL (1.2-3.4); Absolute Monocytes 0.4 10^3/uL (0.1-0.6); Hematocrit 44.8 % (39.0-52.0); Hemoglobin 14.4 g/dL (13.0-18.0); Mean Corp Hgb Conc. 32.1 g/dL (33.0-37.0); Mean Corpuscular Hgb 27.7 pg (27.0-31.0); Mean Corpuscular Volume 86.2 fL (80.0-94.0); Mean Platelet Volume 10.1 fL (7.4-10.4); Nucleated Red Blood Cells % 0 % (-); Platelet Count 183 10^3/uL (130-400); Red Cell Dist. Width 14.4 % (11.5-14.5); White Blood Cell Count 5.7 10^3/uL (4.8-10.8)
[2024-05-11 07:05] LABS: Blood Urea Nitrogen 18 mg/dl (9-20); Calcium 8.9 mg/dl (8.4-10.2); Carbon Dioxide 33 mmol/L (22-30); Chloride 101 mmol/L (98-107); Estimated Creatinine Clearance > 125 ml/min; Glucose 96 mg/dl (70-99); Magnesium 2.2 mg/dl (1.6-2.3); Phosphorus 3.9 mg/dl (2.5-4.5); Potassium 4.1 mmol/L (3.5-5.1); Sodium 140 mmol/L (135-145); eGFR > 60.00
--- NOTE | 2024-05-11 07:12 | W.PN.HOSP.TC ---
Today's Communication/Plan
-
IV abx de-escalated to PO Augmentin
monitor
likely discharge home tomorrow if remains stable
Assessment / Plan
Assessment / Plan
Physical Exam
General: No Apparent Distress, conversant, obese
HEENT: NormoCephalic and Moist mucous membranes
Respiratory: Decreased Breath Sounds some rhonchi, stable respiratory status on room air
Cardiac: S1/S2 NSR no rubs gallops murmurs
GI: Soft, Non Tender and Normal Bowel Sounds
Musculoskeletal: No Cyanosis and No Edema
Skin: Warm and Dry
Neuro: AO x 3
Psych: Calm
43M with past medical history of laryngomalacia status post partial epiglottis resection in the past, tonsillectomy, history of intubations x 2 for pneumonia, questionable history of PE factor V Leiden deficiency, neutropenia (resolved during
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 Evaluated in urgent care, where he was told he was positive for COVID and Flu (however Flu
testing here was negative). Patient denied chest pain, abdominal pain, nausea or vomiting.
Acute Hypoxic Respiratory Insufficiency
RLL Pneumonia
COVID Positive
Sepsis pna (tachycardia tachypnea fever on presentation)
History of laryngomalacia status post partial epiglottis resection in the past, tonsillectomy
History of intubations x 2 for pneumonia
Aspiration pneumonia (requiring intubation)
Recurrent Pneumonia and Recent Use of Antibiotics
-IMU admit stable for downgrade to [facility]
-requiring 2L since weaned off to room air, home oxygen assessment appreciated no need for supplemental oxygen
-MRSA screen neg, empiric Vanc cefipime flagyll narrowed to cefipime further de-escalated to Augmentin
-Pulmonary toilet, HOB elevation, Saline for inhalation, Mucinex
-Continue Dexamethasone IV steroids 6 mg daily (received 10 mg in the ER)
-CT Chest limited study noted no PE
-lower extremity ultrasound neg for DVT
-Pulm eval appreciated Respiratory decompensation likely related to bacterial ymizokhde-nqmngfpgi-smdepvuz or aspiration and less likely COVID as he is previously vaccinated and has had previous infection 4 times offering significant immunity
-speech eval appreciated oropharyngeal dysphagia, likely chronic in nature, VSE appreciated trace aspiration suspected baseline swallow in comparison to VSE 02/25/2021 chronic elevated aspiration risk, patient aware of risk opted to resume oral diet
with swallowing compensation strategies.
Childhood Neutropenia resolved
History of adrenal gland abnormality on CT imaging
Sleep apnea
DVT Prophylaxis: Lovenox
Code Status: Full Code
I spent a total of 40 minutes with the patient or on the floor. More than 50% of this time involved counseling and coordination of care.
Anticipated Discharge: Within 24 hours
Subjective/Interval History
-
Date of Service: May 11, 2024
No acute distress reports feeling well. Tolerating diet. Stable respiratory status on room air. Denies new acute issues at this time.
Objective Data
-
Labs:
Laboratory Results
05/11/24
06:17
WBC 5.7
Hgb 14.4
Hct 44.8
Plt Count 183
Sodium 140
Potassium 4.1
Chloride 101
Carbon Dioxide 33 H
BUN 18
Creatinine 0.6 L
Glucose 96
Calcium 8.9
Vital Signs:
Vital Signs
Temp Pulse Resp BP Pulse Ox
97.9 F 76 18 140/76 94
05/10/24 22:54 05/10/24 22:54 05/10/24 22:54 05/10/24 22:54 05/10/24 22:55
I&O
05/10/24 05/11/24 05/12/24
06:59 06:59 06:59
Intake Total 1330 / 1330 1000 / 1000
Output Total 300 / 300 275 / 275
Balance 1030 / 1030 725 / 725
[2024-05-11 07:32] VITALS: BP 129/80
[2024-05-11] MEDS: DECADRON 6 MG PO (08:29)
[2024-05-11] MEDS: MUCINEX 600 MG PO ×2 (08:29→20:10)
[2024-05-11] MEDS: AUGMENTIN 875 MG/125 MG 1 TABLET PO ×2 (11:11→20:10)
[2024-05-11 16:04] VITALS: BP 139/85
[2024-05-11] MEDS: LOVENOX 40 MG SC (20:09)
[2024-05-11 23:00] VITALS: BP 121/70
--- NOTE | 2024-05-12 06:45 | W.PN.HOSP.TC ---
Addendum entered and electronically signed by Therese Bush MD 05/12/24 19:33:
Morbid Obesity
Original Note:
Today's Communication/Plan
-
discharge
Assessment / Plan
Assessment / Plan
Physical Exam
General: No Apparent Distress, conversant, obese
HEENT: NormoCephalic and Moist mucous membranes
Respiratory: Decreased Breath Sounds, stable respiratory status on room air
Cardiac: S1/S2 NSR no rubs gallops murmurs
GI: Soft, Non Tender and Normal Bowel Sounds
Musculoskeletal: No Cyanosis and No Edema
Skin: Warm and Dry
Neuro: AO x 3
Psych: Calm
43M with past medical history of laryngomalacia status post partial epiglottis resection in the past, tonsillectomy, history of intubations x 2 for pneumonia, questionable history of PE factor V Leiden deficiency, neutropenia (resolved during
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 Evaluated in urgent care, where he was told he was positive for COVID and Flu (however Flu
testing here was negative). Patient denied chest pain, abdominal pain, nausea or vomiting.
Acute Hypoxic Respiratory Insufficiency
RLL Pneumonia
COVID Positive
Sepsis pna (tachycardia tachypnea fever on presentation)
History of laryngomalacia status post partial epiglottis resection in the past, tonsillectomy
History of intubations x 2 for pneumonia
Aspiration pneumonia (requiring intubation)
Recurrent Pneumonia and Recent Use of Antibiotics
-IMU admit downgraded to [facility]
-requiring 2L since weaned off to room air, home oxygen assessment appreciated no need for supplemental oxygen
-MRSA screen neg, empiric Vanc cefipime flagyll narrowed to cefipime further de-escalated to Augmentin, remains stable.
-Pulmonary toilet, HOB elevation, Saline for inhalation, Mucinex
-given overall clinical improvement, short course decadron steroids completed 5 days
-CT Chest limited study noted no PE
-lower extremity ultrasound neg for DVT
-Pulm lois appreciated Respiratory decompensation likely related to bacterial wsnaynghp-aafjvoeia-xeywojlr or aspiration and less likely COVID as he is previously vaccinated and has had previous infection 4 times offering significant immunity
-speech eval appreciated oropharyngeal dysphagia, likely chronic in nature, VSE appreciated trace aspiration suspected baseline swallow in comparison to VSE 02/25/2021 chronic elevated aspiration risk, patient aware of risk opted to resume oral diet
with swallowing compensation strategies.
Childhood Neutropenia resolved
History of adrenal gland abnormality on CT imaging
Sleep apnea
DVT Prophylaxis: Lovenox
Code Status: Full Code
Medically stable for discharge home with outpatient follow up recommendations.
Total Time Preparing Discharge ___40____ minutes including examination of the patient, summary of the hospital stay, instructions for continuing care to all relevant caregivers; and preparation of discharge records, prescriptions, and referral
forms if necessary.
Anticipated Discharge: Today
Subjective/Interval History
-
Date of Service: May 12, 2024
Seen and examined at bedside in no acute distress sitting up comfortably in chair. Overall reports feeling well. Denies new acute issues at this time. Eager to go home.
Objective Data
-
Vital Signs:
Vital Signs
Temp Pulse Resp BP Pulse Ox
98 F 71 24 121/70 94
05/11/24 23:00 05/11/24 23:00 05/11/24 23:00 05/11/24 23:00 05/11/24 23:00
I&O
05/10/24 05/11/24 05/12/24
06:59 06:59 06:59
Intake Total 1330 / 1330 1000 / 1000 720 / 720
Output Total 300 / 300 275 / 275
Balance 1030 / 1030 725 / 725 720 / 720
[2024-05-12 07:46] VITALS: BP 133/83
[2024-05-12] MEDS: DECADRON 6 MG PO (08:33)
[2024-05-12] MEDS: AUGMENTIN 875 MG/125 MG 1 TABLET PO (08:33)
[2024-05-12] MEDS: MUCINEX 600 MG PO (08:34)
--- NOTE | 2024-05-12 09:53 | PN.CDI ---
CDI
- -
CDI:
Physician Documentation Request
Admit Date: 05/08/24 19:07
Dear Doctor Rachelle,
Please review the following and provide your response in the progress notes.
Clinical Indicators:
Height: 5 ft 7 inches
Weight:265 (05/08 )
BMI:41.6
05/10 RD notes state 'BMI 41.0 obese range'
If possible, please provide an associated diagnosis related to the abnormal BMI, such as:
BMI > or = to 40
Overweight
Obesity:
Due to excess calories
Drug induced
Due to other cause
Severe or morbid obesity:
With alveolar hypoventilation (Obesity hypoventilation syndrome)
Without alveolar hypoventilation
- BMI is not significant
- Other
Use of terms such as suspected, likely, concern for, or probable (associated with a specific diagnosis that is being evaluated, monitored, or treated as if it exists) are acceptable and can be coded in the inpatient setting, when documented at the
time of discharge.
Thank you,
Amira Ibarra RN, BSN
CDI Specialist
tiger text
Please use your independent medical judgment in providing your response.
--- NOTE | 2024-05-12 13:03 | W.DCSUMMARY ---
Discharge Summary
Discharge Data
Date of Admission: 05/08/24
Date of Discharge: 05/12/24
-
Pending Results: Yes
Additional Pending Results:
cultures, official results
Discharge Plan
-
Patient Disposition: Home (Routine Discharge)
Discharge Diagnosis/Procedures: Community Acquired Pneumonia
COVID
Sepsis pneumonia
Condition: Fair
Diet: Regular
Activity: As tolerated
Driving Restrictions: As prior to admission
Bathing Restrictions: None
Activity Restrictions/Additional Instructions:
Please follow up with your primary care provider in 1 week of discharge and keep your appointment with Pulmonology.
Augmentin has been prescribed to complete treatment pneumonia. May 14, 2024 is your last day for antibiotic.
Mucinex has been prescribed to help with cough, ok to stop when symptoms resolve.
Please take medications as prescribed/recommended and follow up with primary care provider and/or other healthcare provider involved in your care for further adjustment to your medication regimen as necessary.
With regards to COVID it is recommended that you continue to Quarantine for 5 days 05/08/24-05/12/24. Then last 5 days 05/13/24-05/17/24 continue to wear mask when around other people.
Follow up with primary care provider before returning to work.
Referrals:
Anthony Randall DO [Family Provider] - in one week
Yomaira Herrera CRNP [Specified Professional Personl] - (As scheduled in June 06, 2024 with PFT)
Prescriptions:
New
amoxicillin-pot clavulanate 875-125 mg Tablet
1 tab PO Q12 Qty: 5 0RF
Rx Instructions:
May 14, 2024 is your last day for antibiotic.
guaifenesin 600 mg Tablet Extended Release 12hr
600 mg PO Q12 7 Days Qty: 14 0RF
Continued
ibuprofen [Advil] 200 mg Tablet
400 mg PO Q8HPRN PRN (Reason: cold symptoms)
kwpcghrto-EUR-ZT-acetaminophen 6.05-74-36-500 mg/15 mL Liquid
30 ml PO HSPRN PRN (Reason: cold symptoms)
Discharge Orders:
Discharge Patient (As Directed); Ordered 05/12/24
Ordered By: Therese Bush
Discharge Date and Time
Print Language: [place]UNG[place]
[2024-05-12] MEDS: AFLURIA (36 mos+) 2024-2025 FORMULA 0.5 ML IM (13:28)
[2024-05-12 13:40] VITALS: BP 125/72
== END 2024-05-12 15:55 | disposition home or self-care (01) | DRG 871 ==
LOC: 3 WEST ACU 19:07
PROVIDERS: Physician Assistant; ADMITTING PHYSICIAN Hospitalist; ATTENDING PHYSICIAN Internal Medicine; EMERGENCY PHYSICIAN Emergency Medicine; FAMILY PHYSICIAN Family Medicine; OTHER PHYSICIAN Internal Medicine Critical Care Medicine
PROC: 5A09357 Assistance with Respiratory Ventilation, Less than 24 Consecutive Hours, Continuous Positive Airway Pressure (ICD-10-PCS; 2024-05-09)
PROC: 3E02340 Introduction of Influenza Vaccine into Muscle, Percutaneous Approach (ICD-10-PCS; 2024-05-12)
DX: A41.89 Other specified sepsis (principal); J15.9 Unspecified bacterial pneumonia; U07.1 COVID-19; D68.51 Activated protein C resistance; Q31.5 Congenital laryngomalacia; Z68.41 Body mass index [BMI] 40.0-44.9, adult; F32.A Depression, unspecified; R09.02 Hypoxemia; E66.01 Morbid (severe) obesity due to excess calories; G47.33 Obstructive sleep apnea (adult) (pediatric); R06.89 Other abnormalities of breathing; Z87.01 Personal history of pneumonia (recurrent); Z83.3 Family history of diabetes mellitus; Z82.49 Family history of ischemic heart disease and other diseases of the circulatory system; Z86.711 Personal history of pulmonary embolism; Z23 Encounter for immunization
CPT/HCPCS: 71046; 71275; 74230; 80048; 80053; 83605; 83735; 84100; 85025; 87040; 87502; 87641; 87811; 90686; 92610; 92611; 93970; 94640; 94660; 94761; 96365; 96366; 96375; 99285; G0008; Q9967

== ENCOUNTER 2024-05-17 12:58 | Emergency (ER) | payer BC, SELFPAY ==
[2024-05-17 13:08] VITALS: BP 141/84
[2024-05-17 13:50] LABS: % Basophils 0.3 % (0-2); % Eosinophils 1.3 % (0-6); % Immature Granulocytes 0.1 % (0-0.5); % Lymphocytes 16.9 % (20.5-51.1); % Monocytes 7.5 % (1.7-9.3); % Neutrophils 73.9 % (42.2-75.2); Absolute Eosinophils 0.1 10^3/uL (0-0.7); Absolute Lymphocytes 1.1 10^3/uL (1.2-3.4); Absolute Monocytes 0.5 10^3/uL (0.1-0.6); Absolute Neutrophils 4.9 10^3/uL (1.4-6.5); Hematocrit 46.8 % (39.0-52.0); Hemoglobin 15.1 g/dL (13.0-18.0); Mean Corp Hgb Conc. 32.3 g/dL (33.0-37.0); Mean Corpuscular Hgb 27.5 pg (27.0-31.0); Mean Corpuscular Volume 85.2 fL (80.0-94.0); Mean Platelet Volume 9.7 fL (7.4-10.4); Nucleated Red Blood Cells % 0 % (-); Platelet Count 222 10^3/uL (130-400); Red Blood Cell Count 5.49 10^6/uL (4.70-6.10); Red Cell Dist. Width 13.9 % (11.5-14.5); White Blood Cell Count 6.7 10^3/uL (4.8-10.8)
[2024-05-17 13:57] LABS: ALT (SGPT) 72 U/L (0-50); AST (SGOT) 33 U/L (17-59); Albumin 4.2 g/dl (3.5-5.0); Alkaline Phosphatase 80 U/L (38-126); Blood Urea Nitrogen 20 mg/dl (9-20); Calcium 9.3 mg/dl (8.4-10.2); Carbon Dioxide 34 mmol/L (22-30); Chloride 96 mmol/L (98-107); Glucose 100 mg/dl (70-99); Potassium 4.5 mmol/L (3.5-5.1); Sodium 137 mmol/L (135-145); Total Bilirubin 0.4 mg/dl (0.2-1.3); Total Protein 7.4 g/dl (6.3-8.2); eGFR > 60.00
[2024-05-17 14:29] LABS: Lipase 122 U/L (23-300)
[2024-05-17 17:58] VITALS: BP 131/77
[2024-05-17 18:39] VITALS: BMI 39.7
[2024-05-17 18:41] VITALS: BP 137/84
--- NOTE | 2024-05-17 19:01 | ED.GENMED ---
History of Present Illness
General
Chief Complaint: Flank Pain
Source: patient
Exam Limitations: none
Time Seen by Provider: 05/17/24 17:52
Nursing documentation reviewed up to this point in time: agreed with
History of Present Illness
History of Present Illness:
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
Presents for urinary frequency, decreased urinary stream and right flank pain. Symptoms of the urination issues started last night the patient felt urge to go and only a little bit came out. He went throughout the night. Around 11 AM he started
with right flank pain that was pretty intense, 7 out of 10. It has eased up to a 3 out of 10 currently. He now feels some pain or pressure at the tip of his penis. He has not had any gross hematuria, dysuria, fever or chills, nausea or vomiting.
Patient has had kidney stones before and it feels like that. He tried calling his family doctor and he was told to come in
Past History
Past History
ED Past Medical History: Psychiatric (depression), Other (PE, pneumonia, intubation, pleural effusion, largyngomalacia) and Other (Laryngomalacia, PE, factor V Leiden deficiency, aspiration pneumonia, rectal fistula repair, T tonsillectomy surgery,)
ED Past Surgical History: Tonsilectomy
Social History
Tobacco: Non-smoker
Personal: Single
Living: with family
Employment: Employed
Family History
Family History: Diabetes and Hypertension
Review of Systems
Review of Systems
Allergies reviewed?: Yes
All Other Systems: Not applicable
Phy Exam
Physical Exam
Physical Exam:
GENERAL: Alert, looks comfortable
Neck: supple
voice: pt has fullness to his voice chronically
no stridor
tolerating secretions
CARDIAC: Regular rate and rhythm .
LUNGS: Clear breath sounds bilaterally, no acute respiratory distress, no wheezes/rales/rhonchi
ABDOMEN: Soft, normal bowel sounds, nondistended, no abdominal tenderness no guarding, no rebound, neg titus's
NEUROLOGICAL: Alert and oriented, no focal neuro deficits
SKIN: Warm and dry, skin intact.
PSYCH: Normal and appropriate interaction.
Course
Orders/Labs/Results
Orders:
Orders
05/17/24 13:20
Complete Blood Count/With Diff Urgent
Comprehensive Metabolic Panel Urgent
Lipase Urgent
05/17/24 18:37
Urinalysis Reflex To Culture Urgent
Date Specimen was Collected: 05/17/24
Time Specimen was Collected: 13:12
05/17/24 18:57
CT Abd/pel Without Iv Or Oral Urgent
Comment:
Reason For Exam: r flank pain, h/o kidney stone
Bladder Scan- Treatment ONCE
Ketorolac [Toradol] 15 mg IV NOW STA
05/17/24 20:24
Acetaminophen [Tylenol] 1,000 mg PO NOW STA
Tamsulosin [Flomax] 0.4 mg PO NOW STA
Abnormal Lab Results
05/17/24
13:20
MCHC 32.3 L g/dL
(33.0-37.0)
Absolute Lymphs (auto) 1.1 L 10^3/uL
(1.2-3.4)
Lymphocytes % 16.9 L %
(20.5-51.1)
Chloride 96 L mmol/L
(98-107)
Carbon Dioxide 34 H mmol/L
(22-30)
Glucose 100 H mg/dl
(70-99)
ALT 72 H U/L
(0-50)
05/17/24 13:20
05/17/24 13:20
Vital Signs
Initial and Last Documented VS:
Initial Vital Signs
Temp Pulse Resp BP Pulse Ox
36.7 C 80 22 141/84 94
05/17/24 13:08 05/17/24 13:08 05/17/24 13:08 05/17/24 13:08 05/17/24 13:08
Last Documented Vital Signs
Temp Pulse Resp BP Pulse Ox
36.8 C 82 25 129/84 98
05/17/24 21:11 05/17/24 21:11 05/17/24 21:11 05/17/24 21:11 05/17/24 21:31
MDM/Problems Addressed
Differential Diagnosis Includes:
kdiney stone, urinary retention uiti
MDM/Problems Addressed:
43 y/o M
here recently with covid pna
returns for R flank pain and some urinary frequency overnight
no fever/chills/vomiting
looks comfortable
exam unremarkable
nontender abdomen
ua neg
PVR 0 ml, no retention
ct shows small 2 mm R ureteral stone distal ureter;
other incidental findings
pain is controlled
flomax
fluids
uro f/u.
*Critical Care Note
Total Time (30-74mins, 75-104mins- exclusive of procedures): Not Applicable
ED Attending Note
-
Portions of this chart may have been created with voice recognition software.� Occasional wrong word or��sound alike� substitutions may have occurred due to the inherent limitations of voice recognition software.
Discharge Plan
Departure
Patient Disposition: Home (Routine Discharge)
Date of Disposition: 05/17/24
Time of Disposition: 20:24
Patient with high blood pressure during this ER visit?: No
Condition: Fair
Covid-19: Not Applicable
Discharge Problem:
Ureterolithiasis
Instructions: Kidney Stones (DC), How to Strain Your Urine
Prescriptions:
New
tamsulosin [Flomax] 0.4 mg capsule
0.4 mg PO DAILY Qty: 14 0RF
No Action
ibuprofen [Advil] 200 mg Tablet
400 mg PO Q8HPRN PRN (Reason: cold symptoms)
orvjnultw-UJT-LQ-acetaminophen 6.61-87-69-500 mg/15 mL Liquid
30 ml PO HSPRN PRN (Reason: cold symptoms)
amoxicillin-pot clavulanate 875-125 mg Tablet
1 tab PO Q12 Qty: 5 0RF
Rx Instructions:
May 14, 2024 is your last day for antibiotic.
guaifenesin 600 mg Tablet Extended Release 12hr
600 mg PO Q12 7 Days Qty: 14 0RF
Referrals:
Anthony Randall DO [Family Provider] - Follow up in 2-3 days
Karan Teresa MD [Active] - Follow up in 5-7 days
Activity Restrictions/Additional Instructions:
KEEP HYDRATED
TAKE FLOMAX 0.4 MG ONCE A DAY UNTIL YOU PASS THE STONE
URINATE THROUGH THE STRAINER EACH TIME YOU PEE
TAKE TYLENOL 2 EXTRA STRENGTH TABS 3 TIMES A DAY FOR PAIN
YOU CAN ALSO TRY MOTRIN 800 MG EVERY 8 HOURS WITH FOOD 2-3 TIMES A DAY NEEDED
RETURN FOR: SEVERE PAIN, VOMITING, FEVER, NOT URINATING OR ANY CONCERNS.
OTHERWISE FOLLOW UP WITH UROLOGIST
Interventions
Interventions:
*Risk Screen - Suicide Last Done: 05/17/24 18:41
*General Assessment Last Done: 05/17/24 21:31
*Neglect/Abuse Screening Last Done: 05/17/24 18:41
ED- Fall Risk Assessment Last Done: 05/17/24 19:08
*ED COVID-19 Vaccine History Last Done: 05/17/24 18:41
*Nursing Disposition Last Done: 05/17/24 21:31
UU-Fbxash-Bufjqwwquc Assessment Last Done: 05/17/24 19:08
ED-Male Genitourinary Assessment Last Done: 05/17/24 19:08
Discharge Date and Time
Discharge Date/Time: 05/17/24 21:33
Print Language: JORDANIAN
[2024-05-17 19:08] VITALS: BP 132/80
[2024-05-17 19:13] LABS: Urine Albumin Negative (Neg - Trace); Urine Bilirubin Negative (Negative); Urine Character Clear (Clear); Urine Color Yellow; Urine Glucose Negative (Negative); Urine Ketone Negative (Negative); Urine Leukocyte Negative (Negative); Urine Nitrite Negative (Negative); Urine Occult Blood Negative (Negative); Urine Specific Gravity 1.015 (<1.030); Urine Urobilinogen Negative (Neg - 1+); Urine pH 6.5 (5.0-9.0)
[2024-05-17] MEDS: TORADOL 15 MG IV (19:13)
[2024-05-17 21:11] VITALS: BP 129/84
[2024-05-17] MEDS: TYLENOL 1000 MG PO (21:26)
[2024-05-17] MEDS: FLOMAX 0.4 MG PO (21:27)
== END 2024-05-17 21:33 | disposition home or self-care (01) ==
LOC: EMR 12:58
PROVIDERS: Emergency Medicine; EMERGENCY PHYSICIAN Emergency Medicine; FAMILY PHYSICIAN Family Medicine
DX: N20.1 Calculus of ureter (principal); D68.51 Activated protein C resistance; Z86.16 Personal history of COVID-19
CPT/HCPCS: 96374; 99284; 74176; 80053; 81003; 83690; 85025

== ENCOUNTER 2025-03-12 02:04 | Observation (INO) | payer BC, SELFPAY ==
[2025-03-11 21:53] VITALS: BP 169/103
[2025-03-11 22:32] LABS: Hematocrit 46.6 % (39.0-52.0); Hemoglobin 14.6 g/dL (13.0-18.0); Mean Corp Hgb Conc. 31.3 g/dL (33.0-37.0); Mean Corpuscular Volume 88.9 fL (80.0-94.0); Nucleated Red Blood Cells % 0 % (-); Platelet Count 246 10^3/uL (130-400); Red Cell Dist. Width 14.5 % (11.5-14.5)
[2025-03-11 22:56] LABS: ALT (SGPT) 45 U/L (0-50); AST (SGOT) 34 U/L (17-59); Albumin 4.2 g/dl (3.5-5.0); Alkaline Phosphatase 114 U/L (38-126); Blood Urea Nitrogen 18 mg/dl (9-20); Calcium 8.9 mg/dl (8.4-10.2); Carbon Dioxide 33 mmol/L (22-30); Chloride 102 mmol/L (98-107); Glucose 111 mg/dl (70-99); Potassium 4.5 mmol/L (3.5-5.1); Sodium 136 mmol/L (135-145); Total Protein 7.6 g/dl (6.3-8.2); eGFR > 60.00
[2025-03-12] MEDS: ZOSYN 50 IV ×4 (01:07→21:05)
[2025-03-12] MEDS: TORADOL 30 MG IV (01:07)
--- NOTE | 2025-03-12 01:21 | ED.GENMED ---
History of Present Illness
General
Chief Complaint: Skin Problem
Source: patient
Exam Limitations: none
Time Seen by Provider: 03/12/25 00:59
History of Present Illness
History of Present Illness:
See MDM
Past History
Past History
ED Past Medical History: Psychiatric (depression), Other (PE, pneumonia, intubation, pleural effusion, largyngomalacia) and Other (Laryngomalacia, PE, factor V Leiden deficiency, aspiration pneumonia, rectal fistula repair, T tonsillectomy surgery,)
ED Past Surgical History: Tonsilectomy
Social History
Tobacco: Non-smoker
Personal: Single
Living: with family
Employment: Employed
Family History
Family History: Diabetes and Hypertension
Phy Exam
Physical Exam
Physical Exam:
See MDM
Course
Orders/Labs/Results
Orders:
Orders
03/11/25 22:16
Complete Blood Count/With Diff Urgent
Comprehensive Metabolic Panel Urgent
03/12/25 00:25
Lactic Acid Urgent
Blood Culture Urgent
LI Source: Blood/Venous
Specimen Description:
03/12/25 00:59
Ketorolac [Toradol] 30 mg IV NOW STA
Piperacillin/Tazo 3.375 Gram [Zosyn] 3.375 gram in 50 ml IV NOW
Abnormal Lab Results
03/11/25
22:16
MCHC 31.3 L g/dL
(33.0-37.0)
Carbon Dioxide 33 H mmol/L
(22-30)
Glucose 111 H mg/dl
(70-99)
03/11/25 22:16
03/11/25 22:16
Vital Signs
Initial and Last Documented VS:
Initial Vital Signs
Temp Pulse Resp BP Pulse Ox
98.6 F 95 18 169/103 93
03/11/25 21:53 03/11/25 21:53 03/11/25 21:53 03/11/25 21:53 03/11/25 21:53
Last Documented Vital Signs
Temp Pulse Resp BP Pulse Ox
98.6 F 95 18 169/103 93
03/11/25 21:53 03/11/25 21:53 03/11/25 21:53 03/11/25 21:53 03/11/25 21:53
MDM/Problems Addressed
Differential Diagnosis Includes:
Note:
CHIEF COMPLAINT(S)
Swelling and pain in the ankle following a dog scratch approximately two weeks ago.
HISTORY OF PRESENT ILLNESS
The patient is a 44-year-old male with no stated medication allergies, presenting with worsening ankle swelling and pain. Approximately two weeks ago, the patient sustained a scratch on the back from their dogs nail. About three or four days
post-scratch, the patient noticed swelling extending to the upper leg. Initially, the patient self-monitored the condition but sought urgent care on . At urgent care, the patient received a prescription for amoxicillin/clavulanate
(Augmentin). Despite taking three doses of the antibiotic, the patient reports persistent and worsening swelling and pain at the site, with notable onset of ankle swelling after returning from work today. The patient describes the condition as
painful and has been self-medicating with ibuprofen sporadically.
PAST MEDICAL AND SURGICAL HISTORY
Not discussed in the transcript.
PHYSICAL EXAM
General: Alert, no acute distress.
Skin: Swelling and erythema noted to right calf and right. Distal extremity neurovascular intact
Head: Normocephalic, atraumatic
Neck: Appears supple, trachea midline.
Eyes, Ears, Nose, Mouth, and Throat: Moist mucous membranes
Cardiovascular: No signs of cyanosis
Respiratory: Respirations are non-labored.
Abdomen: Non-distended
Musculoskeletal: No deformities
Neurological: No focal neurological deficit observed.
Psychiatric: Cooperative, appropriate mood and affect.
PLAN
Administer intravenous ketorolac for pain management while in the emergency department. Initiate Zosyn (piperacillin/tazobactam) to address the infection and observe patients response overnight.
DIFFERENTIAL DIAGNOSIS
- Cellulitis
- Abscess formation
- Deep vein thrombosis
- Acute allergic reaction
- Compartment syndrome
- Venous insufficiency
- Inflammation secondary to trauma
- Infected hematoma
- Lymphangitis
- Septic arthritis
SUMMARY OF ENCOUNTER
The patient presented with significant swelling and pain in the ankle, which developed following a dog scratch two weeks prior. Past treatment with oral Augmentin at an urgent care facility was ineffective in resolving symptoms. During the emergency
department evaluation, the decision was made to escalate care by administering intravenous antibiotics and providing analgesia, with an overnight hospital observation to monitor progress and response to treatment.
DISPOSITION
Admit
EMERGENCY TREATMENTS ADMINISTERED
- Intravenous ketorolac
- Intravenous piperacillin/tazobactam (Zosyn)
DIAGNOSIS
L03.116 - Cellulitis of the lower limb, initial encounter
Disposition:
SUMMARY OF ENCOUNTER
The patient is a 44-year-old male presenting to the emergency department with swelling and tenderness in the right leg following a dog scratch approximately two weeks ago. The patient had been on oral amoxicillin/clavulanate (Augmentin) for three
days without improvement, with worsening swelling and pain. Initial suspicion of infection led to treatment with antibiotics in the outpatient setting, which failed to resolve the patients symptoms. In the emergency department, significant erythema
and swelling were noted, suggesting a failure of outpatient antibiotic management. Given the extent of symptoms and risk of further complications, intravenous antibiotics were initiated, and an overnight hospital observation for monitoring was
deemed necessary.
DISPOSITION
Admit for observation overnight.
ASSESSMENT
The patient is exhibiting worsening symptoms of cellulitis despite initial antibiotic treatment, significant erythema, and swelling suggesting inadequate response to oral antibiotics.
EMERGENCY TREATMENTS ADMINISTERED
Intravenous ketorolac was given for pain management. Intravenous piperacillin/tazobactam (Zosyn) was initiated to treat the suspected infection.
PLAN
Administer intravenous piperacillin/tazobactam (Zosyn), manage pain with intravenous ketorolac, and observe the patients response to treatment overnight.
MEDICATION RECONCILIATION
- Administered intravenous ketorolac for pain management.
- Initiated intravenous piperacillin/tazobactam (Zosyn) for infection.
MEDICAL DECISION MAKING
- Complexity of Data Reviewed: Chronic conditions affecting care include consideration of cellulitis, abscess formation, deep vein thrombosis, acute allergic reaction, compartment syndrome, venous insufficiency, inflammation secondary to trauma,
infected hematoma, lymphangitis, and septic arthritis.
- Data:
- Category 1: My independent interpretation indicated significant erythema and swelling.
- Risk: Decision to escalate care and admit for observation was made due to significant symptoms and failure to respond to outpatient antibiotics.
DIAGNOSIS
L03.116 - Cellulitis of the lower limb, initial encounter.
*Pulse Oximetry
SaO2: 93
Oxygen Mode of Delivery: Room air
Patient hypoxic: no
*Critical Care Note
Total Time (30-74mins, 75-104mins- exclusive of procedures): Not Applicable
ED Attending Note
-
Portions of this chart may have been created with voice recognition software.� Occasional wrong word or��sound alike� substitutions may have occurred due to the inherent limitations of voice recognition software.
Discharge Plan
Departure
Patient Disposition: Admit
Date of Disposition: 03/12/25
Time of Disposition: 01:23
Admit to: Med/Surg
Presentation/result/management discussed w/ accepting MD/DO: Hospitalist
Discharge Problem:
Cellulitis
Prescriptions:
No Action
ibuprofen [Advil] 200 mg Tablet
400 mg PO Q8HPRN PRN (Reason: cold symptoms)
nglpwhtks-UGC-QP-acetaminophen 6.64-54-95-500 mg/15 mL Liquid
30 ml PO HSPRN PRN (Reason: cold symptoms)
amoxicillin-pot clavulanate 875-125 mg Tablet
1 tab PO Q12 Qty: 5 0RF
Rx Instructions:
May 14, 2024 is your last day for antibiotic.
guaifenesin 600 mg Tablet Extended Release 12hr
600 mg PO Q12 7 Days Qty: 14 0RF
tamsulosin [Flomax] 0.4 mg capsule
0.4 mg PO DAILY Qty: 14 0RF
Referrals:
Anthony Randall DO [Family Provider, Family Practice]
Interventions
Interventions:
*Risk Screen - Suicide Last Done: 03/11/25 21:53
*General Assessment Last Done: 03/11/25 21:53
*Neglect/Abuse Screening Last Done: 03/11/25 21:53
*ED- Fall Risk Assessment Last Done: 03/12/25 01:00
*ED COVID-19 Vaccine History Last Done: 03/12/25 01:00
*ED Influenza Vaccine History Last Done: 03/12/25 01:00
ED-Skin Assessment Last Done: 03/12/25 00:30
Discharge Date and Time
Print Language: TURKMEN
--- NOTE | 2025-03-12 01:28 | HPS.HSE ---
Family Physician
-
Family Physician: Anthony Randall
Chief Complaint
-
Cellulitis
History of Present Illness
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
cellulitis after being scratched by his dog about 10 days ago.
Patient reported that he had a scratch to the right lower extremity about 10 days ago. He developed erythema and swelling. He was seen in urgent care recently and then started taking Augmentin and has been on Augmentin for 3 days. He denied any
open wound or drainage. He denied having any fevers or chills. He denies any recent travels or immobilization.
He noticed he had increased swelling over the right lower extremity today despite 3 days of antibiotics. He also noticed that when he arose this morning he had development of a much more erythematous patch just superior to the right ankle.
In the emergency department patient was afebrile, blood pressure was 169/100 with a pulse of 95 and he was satting 93% on room air. CBC was unremarkable. Electrolytes BUN and creatinine were in a normal range.
Medical History
Past Medical History
Past Medical History: Reports Other (Obstructive sleep apnea on CPAP)
Past Surgical History: Reports Tonsilectomy and Other (Partial epigottis resection )
Social History
Tobacco: Non-smoker
Alcohol: None
Drug: None
Family History
Family History: Not pertinent
Allergies / Home Medications
Allergies reflects when Allergies were last updated in [facility].
Home Medications with original date entered in [facility]
Allergy/Medication List:
Allergies
Allergy/AdvReac Type Severity Reaction Status Date / Time
cat dander Allergy Unknown Verified 05/17/24 13:11
mold Allergy Unknown Verified 05/17/24 13:11
Home Medications
amoxicillin 875 mg-potassium clavulanate 125 mg tablet 1 tab PO Q12 #5 tabs 05/12/24
sertraline 50 mg tablet 50 mg PO DAILY 03/12/25
terbinafine HCl 250 mg tablet 250 mg PO DAILY 03/12/25
Review of Systems
-
History Source: Patient
Constitutional: Reports No Symptoms
EENT: Reports No Symptoms
Respiratory: Reports No Symptoms
Cardiac: Reports No Symptoms
Abdomen/GI: Reports No Symptoms
: Reports No Symptoms
Musculoskeletal: Reports No Symptoms
Skin: Reports See HPI
Neurological: Reports No Symptoms
Endocrine: Reports No Symptoms
Hematologic/Lymphatic: Reports No Symptoms
Psych: Reports No Symptoms
Physical Exam
Vital Signs
Vital Signs
Temp Pulse Resp BP Pulse Ox
98.6 F 95 18 169/103 93
03/11/25 21:53 03/11/25 21:53 03/11/25 21:53 03/11/25 21:53 03/12/25 01:25
Physical Exam
General: No Apparent Distress and Conversant
HEENT: NormoCephalic and Moist mucous membranes
Respiratory: Decreased Breath Sounds (on the right lower side)
Cardiac: S1/S2 and Tachycardia
GI: Soft, Non Tender and Normal Bowel Sounds
Musculoskeletal: No Cyanosis and Edema, Right Lower Extremity
Skin: Warm, Dry and Rash (Confluent erythematous patch just above the right ankle, generalized erythema and edema of the entire right leg below the knee to the ankle.)
Neuro: AO x 3 and Nonfocal/grossly intact
Psych: Calm and Intact Judgment/Insight
Laboratory Results
-
03/11/25 22:16
03/11/25 22:16
Laboratory Results
Lactic Acid 0.9 mmol/L (0.7-2.0) 03/12/25 00:25
Total Bilirubin 0.5 mg/dl (0.2-1.3) 03/11/25 22:16
AST 34 U/L (17-59) 03/11/25 22:16
ALT 45 U/L (0-50) 03/11/25 22:16
Alkaline Phosphatase 114 U/L (38-126) 03/11/25 22:16
Data Reviewed
-
Lab Data: Labs Reviewed by me
Old Records: Reviewed
Impression/Plan
-
IMPRESSION:
44-year-old with history except for sleep apnea, F V deficiency, laryngomalacia, depression who presents to the emergency department with right lower extremity cellulitis following a dog scractch 1 week ago. He has been on Augmentin x 3 days with
worsening swelling + erythema of the right lower extremity. No systemic symptoms such as fevers or chill. Does not have leukocytosis. No abscess evident. No open wound. Does not have signs of deep tissue infection such as crepitus.
PLAN:
Cellulitis following dog scratch no abscess with failure of oral Augmentin
- Admit to [facility] observation
- blood cultures sent
- IV Zosyn started in the emergency department and will continue for now
- Consideration for MRSA coverage, I will check MRSA swab
- Pain control, elevate legs
- RLE U/S
ONEL
- Continue CPAP patient
Onychomycosis
- continue terbenafine
Depression
- continue sertraline
SVT - occlusive thrombus approximately 5cm from greater saphenous junction which puts him at intermediate risk for VTE. Guidelines less definitive but prophylactic anticoagulation recommended
- start lovenox sq now
- prophylactic anticoag for 45 days with oral rivaroxaban recommended
- hematology consult
DVT prophylaxis�Lovenox subcu for now
CODE STATUS�full code
[2025-03-12 04:03] VITALS: BMI 43.3
[2025-03-12 04:05] VITALS: BP 165/96
[2025-03-12] MEDS: LOVENOX 40 MG SC ×2 (04:36→17:52)
[2025-03-12 07:20] VITALS: BP 130/72
[2025-03-12] MEDS: ZOLOFT 50 MG PO (08:18)
--- NOTE | 2025-03-12 08:30 | W.PN.HOSP.TC ---
Today's Communication/Plan
-
Continue IV Zosyn
Assessment / Plan
Assessment / Plan
Cellulitis following dog scratch no abscess with failure of oral Augmentin
- Dopplers negative for acute DVT, shows occlusive thrombus in the great saphenous vein (superficial)
- Continue IV Zosyn, pain meds
- Follow-up on blood cultures, MRSA swab
SVT
- occlusive thrombus approximately 5cm from greater saphenous junction which puts him at intermediate risk for VTE. Guidelines less definitive but prophylactic anticoagulation recommended
- started prophylactic lovenox sq
- prophylactic anticoag for 45 days with oral rivaroxaban recommended
- hematology consult requested
ONEL
- Continue CPAP
Onychomycosis
- continue terbinafine
Depression
- continue sertraline
Obesity due to excess calories
- Affects all aspects of care
DVT prophylaxis�Lovenox subcu
CODE STATUS�full code
Physical Exam
General: No acute distress
HEENT: Normocephalic, Atraumatic, EOMI, MMM
Respiratory: Clear to Auscultation bilaterally
Cardiac: Normal S1/S2, Regular Rate and Rhythm
GI: Soft, Nontender, Nondistended, Normal Bowel Sounds
Extremities: No Clubbing, Cyanosis
Right lower extremity edema, right lower extremity erythema and tenderness from the knee down to the heel
Neuro: Nonfocal/Grossly Intact
Psych: Calm, Cooperative
Anticipated Discharge: 24 - 48 hours
Subjective/Interval History
-
Date of Service: March 12, 2025
Patient reports that his right lower extremity pain is 5 out of 10 in intensity, same as admission. Denies chest pain, denies shortness of breath. No fever, no vomiting.
Objective Data
-
Labs:
Laboratory Results
03/11/25
22:16
WBC 5.9
Hgb 14.6
Hct 46.6
Plt Count 246
Sodium 136
Potassium 4.5
Chloride 102
Carbon Dioxide 33 H
BUN 18
Creatinine 0.8
Glucose 111 H
Calcium 8.9
Total Bilirubin 0.5
AST 34
ALT 45
Alkaline Phosphatase 114
Vital Signs:
Vital Signs
Temp Pulse Resp BP Pulse Ox
98.1 F 83 18 130/72 92
03/12/25 07:20 03/12/25 07:20 03/12/25 07:20 03/12/25 07:20 03/12/25 07:20
--- NOTE | 2025-03-12 09:01 | CON.ONC ---
Consultation
-
Date Consultation Requested: 03/12/25
Date Consultation Performed: 03/12/25
Requesting Provider: Do
Performing Provider: Lee
Reason for Consultation: SVT
Impression
Impression
SVT RLE symptomatic
Plan
Plan
check D-Dimer as would be useful to follow as outpt-- would followup with repeat Doppler in 2 weeks to ensure that progression of clot does not occur
Patient History
History of Present Illness
45-year-old white male with treated for cellulitis of the left lower extremity with oral antibiotic therapy last week found with progression of RLE erythema/swelling/pain for which ER evaluation noted by Doppler extensive superficial
thrombophlebitis well below the SFC junction ( occlusive thrombus within the great saphenous vein, approximately 5 cm from the right saphenous junction as well as within the upper calf). There is no family/personal history of clotting disorders or
to his recall today of factor V Leiden abnormality (none in this system back 10 years) that he recalls though he indicates he was hospitalized 10+ years ago @ [facility] for presumed PE.
Past-Medical/Surgical History
ONEL/Pickwickian syndrome; laryngomalacia; splenomegaly (stable since 2014); left adrenal mass (stable since 2014)
Patient Medication
�Medication �Instructions �Recorded �Confirmed �Last Taken �Type
amoxicillin 875 mg-potassium 1 tab PO Q12 #5 tabs 05/12/24 03/11/25 19:00 Rx
clavulanate 125 mg tablet
sertraline 50 mg tablet 50 mg PO DAILY 03/12/25 03/12/25 03/01/25 20:00 History
terbinafine HCl 250 mg tablet 250 mg PO DAILY 03/12/25 03/12/25 03/08/25 20:00 History
Active Medications
Generic Name Dose Route Start Last Admin
Trade Name Freq PRN Reason Stop Dose Admin
Acetaminophen 650 mg 03/12/25 04:04
Acetaminophen 325 Mg Tablet PO 04/09/25 04:03
Q4HPRN PRN
mild pain/RODRIGUEZ/temp> 100.4F
Bisacodyl 10 mg 03/12/25 08:00
Bisacodyl 10 Mg Rectal Suppository RECTAL 04/09/25 07:59
[id number] PRN
constipation
Enoxaparin Sodium 40 mg 03/12/25 18:00
Enoxaparin Sodium 40 Mg/0.4 Ml Syringe SC 04/09/25 17:59
QPM FRANK
Hydromorphone HCl 0.5 mg 03/12/25 04:04
Hydromorphone 0.5 Mg/0.5 Ml Syringe IV 03/26/25 04:03
Q4HPRN PRN
breakthrough pain
Piperacillin Sod/Tazobactam Sod 3.375 gram in 50 mls @ 100 mls/hr 03/12/25 08:00 03/12/25 08:19
Zosyn IV 50 mls
Q6H FRANK Administration
Ketorolac Tromethamine 15 mg 03/12/25 08:40
Ketorolac 15 Mg/Ml Injection IV 03/17/25 01:06
Q6HPRN PRN
severe pain
Non-Formulary Medication 250 mg 03/12/25 08:00
Terbinafine Hcl PO 04/09/25 07:59
DAILY FRANK
Oxycodone HCl 10 mg 03/12/25 08:39
Oxycodone 10 Mg Regular Release Tablet PO 03/26/25 08:38
Q4HPRN PRN
moderate pain
Polyethylene Glycol 17 grams 03/12/25 08:00
Polyethylene Glycol Powder 17 Grams Packet PO 04/09/25 07:59
DAILYPRN PRN
constipation
Senna/Docusate Sodium 1 tablet 03/12/25 08:00
Docusate W/Senna (Verna-Colace) Tablet PO 04/09/25 07:59
BIDPRN PRN
constipation
Sertraline HCl 50 mg 03/12/25 08:00 03/12/25 08:18
Sertraline 50 Mg Tablet PO 04/09/25 07:59 50 mg
DAILY FRANK Administration
Review of Systems
-
History Source: Patient
All Other Systems: Reviewed and Negative
Physical Exam
-
General: Appears Chronically Ill
HEENT: Moist Mucous Membranes
Cardiology: Normal Sinus Rhythm
Pulmonary: Clear
GI: Soft and Normal Bowel Sounds
Musculoskeletal: Edema, Right Lower Extrem (erythematous/lower 5th right LE) and Edema, Left Lower Extrem
Skin: Warm and Rash
Psych: Calm
Labs
Lab Results
WBC 5.9 10^3/uL (4.8-10.8) 03/11/25 22:16
RBC 5.24 10^6/uL (4.70-6.10) 03/11/25 22:16
Hgb 14.6 g/dL (13.0-18.0) 03/11/25 22:16
Hct 46.6 % (39.0-52.0) 03/11/25 22:16
MCV 88.9 fL (80.0-94.0) 03/11/25 22:16
MCH 27.9 pg (27.0-31.0) 03/11/25 22:16
MCHC 31.3 g/dL (33.0-37.0) L 03/11/25 22:16
RDW 14.5 % (11.5-14.5) 03/11/25 22:16
Plt Count 246 10^3/uL (130-400) 03/11/25 22:16
MPV 9.7 fL (7.4-10.4) 03/11/25 22:16
Abs Immat Gran (auto) 0.0 10^3/uL (0-0.05) 03/11/25 22:16
Absolute Neuts (auto) 3.7 10^3/uL (1.4-6.5) 03/11/25 22:16
Absolute Lymphs (auto) 1.4 10^3/uL (1.2-3.4) 03/11/25 22:16
Absolute Monos (auto) 0.4 10^3/uL (0.1-0.6) 03/11/25 22:16
Absolute Eos (auto) 0.2 10^3/uL (0-0.7) 03/11/25 22:16
Absolute Basos (auto) 0.0 10^3/uL (0-0.2) 03/11/25 22:16
Immature Gran % 0.3 % (0-0.5) 03/11/25 22:16
Neutrophils % 63.0 % (42.2-75.2) 03/11/25 22:16
Lymphocytes % 24.4 % (20.5-51.1) 03/11/25 22:16
Monocytes % 7.5 % (1.7-9.3) 03/11/25 22:16
Eosinophils % 4.1 % (0-6) 03/11/25 22:16
Basophils % 0.7 % (0-2) 03/11/25 22:16
Creatinine 0.8 mg/dL (0.7-1.3) 03/11/25 22:16
Vital Signs
Vital Signs
Temp Pulse Resp BP Pulse Ox
98.1 F 83 18 130/72 92
03/12/25 07:20 03/12/25 07:20 03/12/25 07:20 03/12/25 07:20 03/12/25 07:20
[2025-03-12] MEDS: ROXICODONE 10 MG PO ×3 (09:43→22:18)
[2025-03-12 15:30] VITALS: BP 118/78
[2025-03-12 23:00] VITALS: BP 138/76
[2025-03-13 00:25] VITALS: PULSE 84
[2025-03-13] MEDS: ZOSYN 50 IV ×3 (03:07→13:04)
[2025-03-13 07:17] LABS: Hematocrit 45.2 % (39.0-52.0); Hemoglobin 14.2 g/dL (13.0-18.0); Mean Corp Hgb Conc. 31.4 g/dL (33.0-37.0); Mean Corpuscular Volume 86.1 fL (80.0-94.0); Platelet Count 228 10^3/uL (130-400); Red Cell Dist. Width 14.6 % (11.5-14.5)
[2025-03-13 07:20] VITALS: BP 137/82
[2025-03-13 07:40] LABS: Blood Urea Nitrogen 18 mg/dl (9-20); Calcium 8.7 mg/dl (8.4-10.2); Carbon Dioxide 33 mmol/L (22-30); Chloride 103 mmol/L (98-107); Estimated Creatinine Clearance > 125 ml/min; Glucose 104 mg/dl (70-99); Magnesium 2.4 mg/dl (1.6-2.3); Potassium 4.8 mmol/L (3.5-5.1); Sodium 136 mmol/L (135-145); eGFR > 60.00
[2025-03-13] MEDS: ZOLOFT 50 MG PO (08:13)
[2025-03-13] MEDS: ROXICODONE 10 MG PO (09:32)
--- NOTE | 2025-03-13 10:01 | W.PN.HOSP.TC ---
Today's Communication/Plan
-
Discharge
Assessment / Plan
Assessment / Plan
Gen-AAOx3, NAD, obese
HEENT-NC, AT, anicteric, clear oral mm
Neck-supple
CV-reg, no M, +S1/S2
Lungs-clear B/L
Abd-soft, NT, ND
Ext-bilateral lower extremity edema, worse on the right side
Musculoskeletal-no cyanosis, clubbing
Skin-warm and dry, right ankle erythema and hyperpigmentation
Neuro-grossly non-focal
Psych-calm, cooperative
Right lower extremity cellulitis -following dog scratch, no abscess. Was on his third day of Augmentin when he presented to the emergency room, 03/11.
Blood cultures negative so far. No signs or symptoms of sepsis.
Can convert back to Augmentin and complete course as an outpatient.
Recommend compression therapy for both legs to help with edema. Taj wraps recommended. Discussed with patient.
Weight loss encouraged.
Right lower extremity SVT
- occlusive thrombus approximately 5cm from greater saphenous junction which puts him at intermediate risk for VTE. Guidelines less definitive but prophylactic anticoagulation recommended
- started prophylactic lovenox sq
- prophylactic anticoag for 45 days with oral rivaroxaban recommended
- hematology consulted. Patient believes he has a remote history of left-sided pulmonary embolism years ago.
ONEL
- Continue CPAP
Onychomycosis
- continue terbinafine
Depression
- continue sertraline
Morbid obesity due to excess calories
DVT prophylaxis�Lovenox subcu
CODE STATUS�full code
Dispo -stable for discharge today. Recommend outpatient follow-up with PCP and hematology.
32 minutes spent in discharge process.
Anticipated Discharge: Today
Subjective/Interval History
-
Date of Service: March 13, 2025
Patient seen and examined. Complaining of right lower extremity pain.
Objective Data
-
Labs:
Laboratory Results
03/13/25
06:49
WBC 5.3
Hgb 14.2
Hct 45.2
Plt Count 228
Sodium 136
Potassium 4.8
Chloride 103
Carbon Dioxide 33 H
BUN 18
Creatinine 1.0
Glucose 104 H
Calcium 8.7
Vital Signs:
Vital Signs
Temp Pulse Resp BP Pulse Ox
98.0 F 86 18 137/82 92
03/13/25 07:20 03/13/25 07:20 03/13/25 07:20 03/13/25 07:20 03/13/25 07:20
I&O
03/12/25 03/13/25 03/14/25
06:59 06:59 06:59
Intake Total 580 / 580
Output Total 250 / 250
Balance 330 / 330
Review of Systems
-
History Source: Patient
All other systems: Reviewed and negative
--- NOTE | 2025-03-13 10:09 | W.DS.TRANS ---
DC Summary - [employer]
-
Discharge Instructions:
Discharge Diagnosis/Procedures Right lower extremity cellulitis, right lower
extremity superficial thrombosis
Diet Regular
Activity As tolerated
Driving Restrictions No driving while you are on opiates
Bathing Restrictions None
Instructions:
Stand-Alone Forms:
Changes to Home Medications: No
Discharge Medications:
DC Medications w/original date entered in [employer]
sertraline 50 mg tablet 50 mg PO DAILY Mental Health/Anxiety 03/12/25
terbinafine HCl 250 mg tablet 250 mg PO DAILY Infection 03/12/25
amoxicillin 875 mg-potassium clavulanate 125 mg tablet 1 tab PO BID #20 tabs 03/13/25
oxycodone 10 mg tablet 10 mg PO Q4HPRN PRN moderate pain #15 tabs 03/13/25
rivaroxaban 10 mg tablet 10 mg PO DAILY #45 tabs 03/13/25
Home Medication Changes
Pending Results: No
--- NOTE | 2025-03-13 11:54 | CM ---
CM reviewed chart, patient seen bedside, initial assessment completed.
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
cellulitis after being scratched by his dog about 10 days ago.
Patient resides with his mom in a one story home plus basement, two steps to enter (through garage or front door).
Patient denies use of DME other than CPAP, denies VN/SNX hx.
Patient confirms PCP [facility], Pharmacy [facility], confirms prescription coverage.
Patient denies insecurities at home.
Patient confirms transport home by family.
OBS form verbally reviewed, provided with copy, placed in chart.
CM will continue to follow.
Plan; home no needs
[2025-03-13] MEDS: FLUZONE (6 mos+) 2025-2026 FORMULA 0.5 ML IM (12:12)
[2025-03-13 14:06] VITALS: BP 143/84
--- NOTE | 2025-03-13 17:57 | W.PN.ONC2 ---
Today's Communication / Plan
-
Okay to D/C home. We will see in follow up in approx 4 weeks as outpt.
Impression
Impression
SVT RLE symptomatic
Plan
Plan
check D-Dimer as would be useful to follow as outpt-- would followup with repeat Doppler in 2 weeks to ensure that progression of clot does not occur
Subjective/Objective
Chief Complaint
Heme/Onc follow up of superficial venous thrombosis - seen this morning prior to d/c
Subjective
Cellulitis improved
Vital Signs:
Vital Signs
Temp Pulse Resp BP Pulse Ox
98.1 F 90 18 143/84 95
03/13/25 14:06 03/13/25 14:06 03/13/25 14:06 03/13/25 14:06 03/13/25 14:06
Lab Results:
Laboratory Data
WBC 5.3 10^3/uL (4.8-10.8) 03/13/25 06:49
Hgb 14.2 g/dL (13.0-18.0) 03/13/25 06:49
Plt Count 228 10^3/uL (130-400) 03/13/25 06:49
eGFR > 60.00 03/13/25 06:49
Physical Exam
Awake, alert, obese and chronically ill-appearing
Persistent cellulitis R ankle dorsum
== END 2025-03-13 14:56 | disposition home or self-care (01) ==
LOC: 4 WEST ACU 02:04
PROVIDERS: Emergency Medicine; Family Medicine; Student in an Organized Health Care Education/Training Program; ADMITTING PHYSICIAN Internal Medicine; ATTENDING PHYSICIAN Hospitalist; CONSULT PHYSICIAN Internal Medicine Hematology & Oncology; EMERGENCY PHYSICIAN Student in an Organized Health Care Education/Training Program; FAMILY PHYSICIAN Family Medicine
DX: L03.115 Cellulitis of right lower limb (principal); M79.604 Pain in right leg; S90.511A Abrasion, right ankle, initial encounter; F32.A Depression, unspecified; Q31.5 Congenital laryngomalacia; D68.51 Activated protein C resistance; B35.1 Tinea unguium; I47.10 Supraventricular tachycardia, unspecified; M79.89 Other specified soft tissue disorders; I82.811 Embolism and thrombosis of superficial veins of right lower extremity; L81.9 Disorder of pigmentation, unspecified; E66.2 Morbid (severe) obesity with alveolar hypoventilation; W54.8XXA Other contact with dog, initial encounter; Y93.K9 Activity, other involving animal care; Y93.9 Activity, unspecified; Y92.9 Unspecified place or not applicable; Z87.01 Personal history of pneumonia (recurrent); Z86.711 Personal history of pulmonary embolism; Z83.3 Family history of diabetes mellitus; Z82.49 Family history of ischemic heart disease and other diseases of the circulatory system; Z91.048 Other nonmedicinal substance allergy status; Z79.899 Other long term (current) drug therapy; Z79.01 Long term (current) use of anticoagulants; Z23 Encounter for immunization; Z68.41 Body mass index [BMI] 40.0-44.9, adult
CPT/HCPCS: 90694; G0008; 80048; 80053; 83605; 83735; 85025; 85027; 87040; 87070; 93971; 94660; 96365; 96375; 99284; G0378

== ENCOUNTER → 2025-04-24 11:15 | Outpatient (REF) | payer BC, SELFPAY | LOC: RAD 11:15 | PROVIDERS: ATTENDING PHYSICIAN Internal Medicine Hematology & Oncology; FAMILY PHYSICIAN Family Medicine | DX: I82.819 Embolism and thrombosis of superficial veins of unspecified lower extremity (principal) | CPT/HCPCS: 93971 ==